=== PATIENT | male | born 1985 | race Caucasian/White ===

== ENCOUNTER 2021-08-15 13:09 | Inpatient (IN) | payer BC ==
[2021-08-15 14:39] VITALS: BMI 26.4
[2021-08-15] MEDS ORDERED: MAGNESIUM CITRATE 300 ML BOTTLE PO PRN (19:43)
[2021-08-15] MEDS ORDERED: ONDANSETRON *ODT* 4 MG TABLET SL PRN (19:43)
[2021-08-15] MEDS ORDERED: LOPERAMIDE HCL 2 MG CAPSULE PO PRN (19:43)
[2021-08-15] MEDS ORDERED: MAG HYDROX/AL HYDROX/SIMETH 30 ML UNIT-DOSE CUP PO PRN (19:43)
[2021-08-15] MEDS ORDERED: LORazepam 2 MG TABLET PO ONE (19:43)
[2021-08-15] MEDS ORDERED: MENTHOL/PHENOL 1 EACH UD MM PRN (19:43)
[2021-08-15] MEDS ORDERED: ACETAMINOPHEN 325 MG TABLET (FP) PO PRN ×2 (19:43)
[2021-08-15] MEDS ORDERED: BISMUTH SUBSALICYLATE 524 MG/30 ML PO PRN (19:43)
[2021-08-15] MEDS ORDERED: MAGNESIUM HYDROX 2400MG/30ML ORAL SUSPENSION 30 ML CUP PO PRN (19:43)
[2021-08-15] MEDS ORDERED: NICOTINE POLACRILEX 2 MG GUM BUC PRN (19:43)
[2021-08-15] MEDS ORDERED: IBUPROFEN 400 MG TABLET (FP) PO PRN (19:43)
[2021-08-15] MEDS ORDERED: methaDONE HCL 10 MG TABLET PO ONE (19:49)
[2021-08-15] MEDS ORDERED: MELATONIN 5 MG TABLETS PO PRN ×2 (22:00)
[2021-08-15] MEDS: LORazepam 2 MG TABLET PO SCH (23:05)
[2021-08-15] MEDS: THIAMINE HCL 100 MG TABLET (FP) PO SCH (23:05)
[2021-08-15] MEDS: METHOCARBAMOL 500 MG TABLET PO PRN (23:09)
[2021-08-15] MEDS: NICOTINE 10 MG CARTRIDGE (INHALER) IH PRN (23:10)
[2021-08-16] MEDS: LORazepam 2 MG TABLET PO SCH ×4 (05:46→22:09)
[2021-08-16] MEDS ORDERED: methaDONE HCL 10 MG TABLET PO ONE (10:00)
[2021-08-16] MEDS ORDERED: methaDONE HCL 40 MG DISPERSABLE TABLET ONE (10:01)
[2021-08-16] MEDS: PRENATAL VITAMINS W/ FOLIC ACID TABLET (FP) PO SCH (10:34)
[2021-08-16] MEDS: LORazepam 1 MG TABLET PO PRN (12:34)
[2021-08-16] MEDS: hydrOXYzine PAMOATE 25 MG CAPSULE (FP) PO PRN (14:21)
[2021-08-16] MEDS: GABAPENTIN 300 MG CAPSULE PO SCH ×2 (14:22→22:08)
[2021-08-16 16:42] LABS: HEMATOCRIT 37.3 % (35.4-49); HEMOGLOBIN 12.4 GM/dL (11.7-16.9); MCH 31.5 pg (25.7-33.7); MCHC 33.4 g/dl (32.0-35.9); MEAN CELL VOLUME 94.3 fl (80-96); MEAN PLT VOLUME 8.1 fl (7.5-11.1); PLATELET COUNT 321 10^3/uL (134-434); RBC 3.96 M/mm3 (4.00-5.60); RDW 13.2 % (11.9-15.9); WHITE BLOOD COUNT 10.5 K/mm3 (4.0-10.0)
[2021-08-16 16:48] LABS: BLOOD UREA NITROGEN 8.2 mg/dL (7-18); CALCIUM 9.3 mg/dL (8.5-10.1)
[2021-08-16 16:49] LABS: ALBUMIN 3.4 g/dl (3.4-5.0)
[2021-08-16 16:52] LABS: CREATININE 0.8 mg/dL (0.55-1.3)
[2021-08-16 16:53] LABS: BILIRUBIN,TOTAL 0.7 mg/dL (0.2-1); TOT PROT 6.6 g/dl (6.4-8.2)
[2021-08-16] MEDS: THIAMINE HCL 100 MG TABLET (FP) PO SCH (22:08)
[2021-08-16] MEDS: QUEtiapine FUMARATE 300 MG TABLET PO SCH (22:08)
[2021-08-17] MEDS: LORazepam 1 MG TABLET PO SCH ×4 (05:31→22:14)
[2021-08-17] MEDS: GABAPENTIN 300 MG CAPSULE PO SCH ×3 (05:32→22:14)
[2021-08-17 08:10] LABS: SARS-CoV-2 NAA Not Detected (Not Detected)
[2021-08-17] MEDS ORDERED: methaDONE HCL 40 MG DISPERSABLE TABLET ONE (09:22)
[2021-08-17] MEDS ORDERED: methaDONE HCL 10 MG TABLET PO ONE (10:00)
[2021-08-17] MEDS: PRENATAL VITAMINS W/ FOLIC ACID TABLET (FP) PO SCH (10:46)
[2021-08-17] MEDS: METHOCARBAMOL 500 MG TABLET PO PRN ×2 (10:46→16:58)
[2021-08-17] MEDS: NICOTINE 10 MG CARTRIDGE (INHALER) IH PRN (12:06)
[2021-08-17] MEDS: LORazepam 1 MG TABLET PO PRN (14:40)
[2021-08-17] MEDS: hydrOXYzine PAMOATE 25 MG CAPSULE (FP) PO PRN (16:58)
[2021-08-17] MEDS: THIAMINE HCL 100 MG TABLET (FP) PO SCH (22:14)
[2021-08-17] MEDS: QUEtiapine FUMARATE 300 MG TABLET PO SCH (22:14)
[2021-08-18] MEDS ORDERED: LORazepam 0.5 MG TABLET PO PRN
[2021-08-18] MEDS ORDERED: methaDONE HCL 40 MG DISPERSABLE TABLET ONE (04:19)
[2021-08-18] MEDS ORDERED: methaDONE HCL 10 MG TABLET PO SCH (06:00)
[2021-08-18] MEDS: GABAPENTIN 300 MG CAPSULE PO SCH ×3 (06:16→22:30)
[2021-08-18] MEDS: LORazepam 0.5 MG TABLET PO SCH ×4 (06:17→22:30)
[2021-08-18] MEDS: PRENATAL VITAMINS W/ FOLIC ACID TABLET (FP) PO SCH (10:24)
[2021-08-18] MEDS ORDERED: BACLOFEN 10 MG TABLET (FP) PO PRN (13:40)
[2021-08-18] MEDS ORDERED: BACLOFEN 10 MG TABLET (FP) PO ONE (14:00)
[2021-08-18] MEDS: hydrOXYzine PAMOATE 25 MG CAPSULE (FP) PO PRN (18:19)
[2021-08-18] MEDS: QUEtiapine FUMARATE 300 MG TABLET PO SCH (22:30)
[2021-08-18] MEDS: THIAMINE HCL 100 MG TABLET (FP) PO SCH (22:30)
[2021-08-19] MEDS ORDERED: methaDONE HCL 40 MG DISPERSABLE TABLET ONE (04:21)
[2021-08-19] MEDS ORDERED: LORazepam 0.5 MG TABLET PO ONE (05:00)
[2021-08-19] MEDS: GABAPENTIN 300 MG CAPSULE PO SCH ×2 (05:40→14:04)
[2021-08-19] MEDS: PRENATAL VITAMINS W/ FOLIC ACID TABLET (FP) PO SCH (10:45)
[2021-08-19] MEDS: hydrOXYzine PAMOATE 25 MG CAPSULE (FP) PO PRN (10:45)
[2021-08-19 13:07] VITALS: BP 130/76; PULSE 96; TEMP 98.7
== END 2021-08-19 14:08 | disposition home or self-care (01) | DRG 773 ==
LOC: YASAS 13:09 → Y6N 20:45
PROVIDERS: ADMIT Allergy & Immunology; ATTEND Allergy & Immunology
PROC: HZ2ZZZZ Detoxification Services for Substance Abuse Treatment (ICD-10-PCS; principal; 2021-08-15)
DX: F13.230 Sedative, hypnotic or anxiolytic dependence with withdrawal, uncomplicated (principal); F11.20 Opioid dependence, uncomplicated; F14.20 Cocaine dependence, uncomplicated; F12.20 Cannabis dependence, uncomplicated; F17.210 Nicotine dependence, cigarettes, uncomplicated; F25.1 Schizoaffective disorder, depressive type; F19.282 Other psychoactive substance dependence with psychoactive substance-induced sleep disorder; F19.280 Other psychoactive substance dependence with psychoactive substance-induced anxiety disorder; F19.24 Other psychoactive substance dependence with psychoactive substance-induced mood disorder; H50.89 Other specified strabismus; Z86.69 Personal history of other diseases of the nervous system and sense organs; Z88.8 Allergy status to other drugs, medicaments and biological substances; Z91.013 Allergy to seafood
CPT/HCPCS: 36415; 80053; 85027; 86780; 87811; 93005; 93010; C9803; U0003; U0005

== ENCOUNTER 2021-10-15 18:01 | Inpatient (IN) | payer BC ==
[2021-10-15 23:01] VITALS: BMI 25.7
[2021-10-16] MEDS ORDERED: MAG HYDROX/AL HYDROX/SIMETH 30 ML UNIT-DOSE CUP PO PRN (00:33)
[2021-10-16] MEDS ORDERED: NICOTINE POLACRILEX 2 MG GUM BUC PRN (00:33)
[2021-10-16] MEDS ORDERED: LOPERAMIDE HCL 2 MG CAPSULE PO PRN (00:33)
[2021-10-16] MEDS ORDERED: MAGNESIUM CITRATE 300 ML BOTTLE PO PRN (00:33)
[2021-10-16] MEDS ORDERED: BENZOCAINE/MENTHOL (CHLORASEPTIC ) LOZENGE MM PRN (00:33)
[2021-10-16] MEDS ORDERED: BISMUTH SUBSALICYLATE 524 MG/30 ML PO PRN (00:33)
[2021-10-16] MEDS ORDERED: MAGNESIUM HYDROX 2400MG/30ML ORAL SUSPENSION 30 ML CUP PO PRN (00:33)
[2021-10-16] MEDS ORDERED: DICYCLOMINE HCL 10 MG CAPSULE PO PRN (00:33)
[2021-10-16] MEDS ORDERED: ACETAMINOPHEN 325 MG TABLET (FP) PO PRN (00:33)
[2021-10-16] MEDS ORDERED: IBUPROFEN 400 MG TABLET (FP) PO PRN (00:33)
[2021-10-16] MEDS ORDERED: diazePAM 5 MG TABLET ONE (01:12)
[2021-10-16] MEDS: diazePAM 5 MG TABLET PO PRN ×3 (01:13→20:28)
[2021-10-16] MEDS: diazePAM 5 MG TABLET PO SCH ×5 (06:03→22:26)
[2021-10-16] MEDS ORDERED: methaDONE HCL 10 MG TABLET PO ONE (09:41)
[2021-10-16] MEDS ORDERED: methaDONE HCL 40 MG DISPERSABLE TABLET ONE ×2 (10:13→11:45)
[2021-10-16] MEDS: PRENATAL VITAMINS W/ FOLIC ACID TABLET (FP) PO SCH ×2 (10:14→11:51)
[2021-10-16] MEDS: NICOTINE 14 MG/24 HOURS TOPICAL PATCH TD SCH (10:14)
[2021-10-16] MEDS: ONDANSETRON *ODT* 4 MG TABLET SL PRN (10:24)
[2021-10-16] MEDS: BACITRACIN 15 GM TUBE TOPICAL OINTMENT TP SCH (11:59)
[2021-10-16] MEDS: GABAPENTIN 300 MG CAPSULE PO SCH ×2 (14:23→22:22)
[2021-10-16] MEDS: ACETAMINOPHEN 325 MG TABLET (FP) PO PRN (17:48)
[2021-10-16] MEDS: QUEtiapine FUMARATE 300 MG TABLET PO SCH (22:22)
[2021-10-16] MEDS: MELATONIN 5 MG TABLETS PO SCH (22:22)
[2021-10-16] MEDS: THIAMINE HCL 100 MG TABLET (FP) PO SCH (22:22)
[2021-10-17] MEDS ORDERED: methaDONE HCL 40 MG DISPERSABLE TABLET ONE (04:16)
[2021-10-17] MEDS ORDERED: methaDONE HCL 40 MG DISPERSABLE TABLET PO SCH (06:00)
[2021-10-17] MEDS: diazePAM 5 MG TABLET PO SCH ×3 (06:06→22:03)
[2021-10-17] MEDS: GABAPENTIN 300 MG CAPSULE PO SCH ×3 (06:06→22:03)
[2021-10-17] MEDS: PRENATAL VITAMINS W/ FOLIC ACID TABLET (FP) PO SCH (10:31)
[2021-10-17] MEDS: NICOTINE 14 MG/24 HOURS TOPICAL PATCH TD SCH (10:31)
[2021-10-17] MEDS: diazePAM 5 MG TABLET PO PRN ×2 (10:35→18:48)
[2021-10-17] MEDS ORDERED: NICOTINE 10 MG CARTRIDGE (INHALER) IH PRN (10:55)
[2021-10-17] MEDS: BACITRACIN 15 GM TUBE TOPICAL OINTMENT TP SCH (11:37)
[2021-10-17 12:41] LABS: HEMATOCRIT 35.9 % (35.4-49); HEMOGLOBIN 11.8 GM/dL (11.7-16.9); MCH 30.2 pg (25.7-33.7); MCHC 32.8 g/dl (32.0-35.9); MEAN CELL VOLUME 92.2 fl (80-96); MEAN PLT VOLUME 8.5 fl (7.5-11.1); PLATELET COUNT 304 10^3/uL (134-434); WHITE BLOOD COUNT 4.9 K/mm3 (4.0-10.0)
[2021-10-17 13:07] LABS: ALBUMIN 3.2 g/dl (3.4-5.0); BLOOD UREA NITROGEN 4.8 mg/dL (7-18)
[2021-10-17 13:10] LABS: CREATININE 0.8 mg/dL (0.55-1.3)
[2021-10-17 13:11] LABS: BILIRUBIN,TOTAL 0.4 mg/dL (0.2-1)
[2021-10-17] MEDS: THIAMINE HCL 100 MG TABLET (FP) PO SCH (22:03)
[2021-10-17] MEDS: QUEtiapine FUMARATE 300 MG TABLET PO SCH (22:03)
[2021-10-17] MEDS: MELATONIN 5 MG TABLETS PO SCH (22:06)
[2021-10-18] MEDS ORDERED: methaDONE HCL 40 MG DISPERSABLE TABLET ONE (04:21)
[2021-10-18] MEDS: GABAPENTIN 300 MG CAPSULE PO SCH ×3 (05:45→22:21)
[2021-10-18] MEDS: diazePAM 5 MG TABLET PO SCH ×2 (05:46→17:30)
[2021-10-18] MEDS: diazePAM 5 MG TABLET PO PRN ×2 (10:23→14:15)
[2021-10-18] MEDS: PRENATAL VITAMINS W/ FOLIC ACID TABLET (FP) PO SCH (10:23)
[2021-10-18] MEDS: NICOTINE 14 MG/24 HOURS TOPICAL PATCH TD SCH (10:24)
[2021-10-18] MEDS: BACITRACIN 15 GM TUBE TOPICAL OINTMENT TP SCH (10:26)
[2021-10-18] MEDS: METHOCARBAMOL 500 MG TABLET PO PRN (17:35)
[2021-10-18] MEDS: ONDANSETRON *ODT* 4 MG TABLET SL PRN (17:35)
[2021-10-18] MEDS: ACETAMINOPHEN 325 MG TABLET (FP) PO PRN (17:35)
[2021-10-18] MEDS: QUEtiapine FUMARATE 300 MG TABLET PO SCH (22:21)
[2021-10-18] MEDS: THIAMINE HCL 100 MG TABLET (FP) PO SCH (22:21)
[2021-10-18] MEDS: MELATONIN 5 MG TABLETS PO SCH (22:21)
[2021-10-19] MEDS ORDERED: methaDONE HCL 40 MG DISPERSABLE TABLET ONE (04:15)
[2021-10-19] MEDS: GABAPENTIN 300 MG CAPSULE PO SCH ×3 (05:47→22:58)
[2021-10-19] MEDS ORDERED: diazePAM 5 MG TABLET PO ONE ×2 (06:00→18:00)
[2021-10-19] MEDS: NICOTINE 14 MG/24 HOURS TOPICAL PATCH TD SCH (10:10)
[2021-10-19] MEDS: PRENATAL VITAMINS W/ FOLIC ACID TABLET (FP) PO SCH (10:10)
[2021-10-19] MEDS: BACITRACIN 15 GM TUBE TOPICAL OINTMENT TP SCH (10:11)
[2021-10-19] MEDS ORDERED: diazePAM 5 MG TABLET PO PRN (10:16)
[2021-10-19] MEDS: METHOCARBAMOL 500 MG TABLET PO PRN (18:25)
[2021-10-19] MEDS: QUEtiapine FUMARATE 300 MG TABLET PO SCH (22:58)
[2021-10-19] MEDS: MELATONIN 5 MG TABLETS PO SCH (22:58)
[2021-10-19] MEDS: THIAMINE HCL 100 MG TABLET (FP) PO SCH (22:58)
[2021-10-20] MEDS ORDERED: methaDONE HCL 40 MG DISPERSABLE TABLET ONE (04:49)
[2021-10-20] MEDS ORDERED: diazePAM 5 MG TABLET PO ONE (05:00)
[2021-10-20] MEDS: GABAPENTIN 300 MG CAPSULE PO SCH ×2 (06:00→14:53)
[2021-10-20] MEDS: METHOCARBAMOL 500 MG TABLET PO PRN (10:27)
[2021-10-20] MEDS: PRENATAL VITAMINS W/ FOLIC ACID TABLET (FP) PO SCH (10:27)
[2021-10-20] MEDS: BACITRACIN 15 GM TUBE TOPICAL OINTMENT TP SCH (10:27)
[2021-10-20] MEDS: NICOTINE 14 MG/24 HOURS TOPICAL PATCH TD SCH (10:29)
[2021-10-20 13:06] VITALS: BP 102/58; PULSE 81; TEMP 97.1
[2021-10-20 14:08] LABS: SARS-CoV-2 NAA Not Detected (Not Detected)
== END 2021-10-20 15:04 | disposition other institution (70) | DRG 773 ==
LOC: YASAS 18:01 → Y6N 10-16 02:19
PROVIDERS: ADMIT Allergy & Immunology; ATTEND Allergy & Immunology
PROC: HZ2ZZZZ Detoxification Services for Substance Abuse Treatment (ICD-10-PCS; principal; 2021-10-16)
DX: F13.230 Sedative, hypnotic or anxiolytic dependence with withdrawal, uncomplicated (principal); F11.20 Opioid dependence, uncomplicated; F14.20 Cocaine dependence, uncomplicated; F17.210 Nicotine dependence, cigarettes, uncomplicated; F25.1 Schizoaffective disorder, depressive type; F33.9 Major depressive disorder, recurrent, unspecified; F19.282 Other psychoactive substance dependence with psychoactive substance-induced sleep disorder; F19.280 Other psychoactive substance dependence with psychoactive substance-induced anxiety disorder; F41.9 Anxiety disorder, unspecified; F43.10 Post-traumatic stress disorder, unspecified; R73.09 Other abnormal glucose; Z28.310 Unvaccinated for COVID-19; Z86.69 Personal history of other diseases of the nervous system and sense organs; Z91.51 Personal history of suicidal behavior; Z56.0 Unemployment, unspecified
CPT/HCPCS: 36415; 80053; 82962; 85027; 86780; 93005; 93010; C9803-CS; Q0162; U0003; U0005

== ENCOUNTER 2021-10-20 15:07 | Inpatient (IN) | payer BC ==
[2021-10-20] MEDS ORDERED: guaiFENesin 200 MG/10 ML 10 ML UNIT-DOSE CUPS PO PRN (16:17)
[2021-10-20] MEDS ORDERED: P-EPHED 60MG/TRIPROLIDI 2.5MG TABLET PO PRN (16:17)
[2021-10-20] MEDS ORDERED: LOPERAMIDE HCL 2 MG CAPSULE PO PRN (16:17)
[2021-10-20] MEDS ORDERED: MAGNESIUM HYDROX 2400MG/30ML ORAL SUSPENSION 30 ML CUP PO PRN (16:17)
[2021-10-20] MEDS ORDERED: NICOTINE POLACRILEX 2 MG GUM BUC PRN (16:17)
[2021-10-20] MEDS ORDERED: MAG HYDROX/AL HYDROX/SIMETH 30 ML UNIT-DOSE CUP PO PRN (16:17)
[2021-10-20] MEDS ORDERED: MAGNESIUM CITRATE 300 ML BOTTLE PO PRN (16:17)
[2021-10-20] MEDS ORDERED: BENZOCAINE/MENTHOL (CHLORASEPTIC ) LOZENGE MM PRN (16:17)
[2021-10-20] MEDS: MELATONIN 5 MG TABLETS PO SCH (21:34)
[2021-10-20] MEDS: hydrOXYzine PAMOATE 25 MG CAPSULE (FP) PO PRN (21:34)
[2021-10-20] MEDS: GABAPENTIN 300 MG CAPSULE PO SCH (21:35)
[2021-10-20] MEDS: THIAMINE HCL 100 MG TABLET (FP) PO SCH (21:35)
[2021-10-20] MEDS: QUEtiapine FUMARATE 300 MG TABLET PO SCH (21:35)
[2021-10-21] MEDS: GABAPENTIN 300 MG CAPSULE PO SCH ×3 (06:28→21:41)
[2021-10-21] MEDS ORDERED: methaDONE HCL 10 MG TABLET PO ONE (09:16)
[2021-10-21] MEDS ORDERED: methaDONE HCL 40 MG DISPERSABLE TABLET ONE (10:15)
[2021-10-21] MEDS: NICOTINE 7 MG/24 HOURS TOPICAL PATCH TD SCH (10:33)
[2021-10-21] MEDS: PRENATAL VITAMINS W/ FOLIC ACID TABLET (FP) PO SCH (10:33)
[2021-10-21] MEDS: NICOTINE 10 MG CARTRIDGE (INHALER) IH PRN (10:36)
[2021-10-21] MEDS: THIAMINE HCL 100 MG TABLET (FP) PO SCH (21:41)
[2021-10-21] MEDS: QUEtiapine FUMARATE 300 MG TABLET PO SCH (21:41)
[2021-10-21] MEDS: MELATONIN 5 MG TABLETS PO SCH (21:41)
[2021-10-22] MEDS ORDERED: methaDONE HCL 10 MG TABLET PO SCH (06:00)
[2021-10-22] MEDS ORDERED: methaDONE HCL 40 MG DISPERSABLE TABLET ONE (06:16)
[2021-10-22] MEDS: GABAPENTIN 300 MG CAPSULE PO SCH ×3 (06:17→21:32)
[2021-10-22] MEDS: PRENATAL VITAMINS W/ FOLIC ACID TABLET (FP) PO SCH (10:29)
[2021-10-22] MEDS: NICOTINE 7 MG/24 HOURS TOPICAL PATCH TD SCH (10:30)
[2021-10-22] MEDS: QUEtiapine FUMARATE 300 MG TABLET PO SCH (21:32)
[2021-10-22] MEDS: THIAMINE HCL 100 MG TABLET (FP) PO SCH (21:33)
[2021-10-22] MEDS: MELATONIN 5 MG TABLETS PO SCH (21:33)
[2021-10-23] MEDS ORDERED: methaDONE HCL 40 MG DISPERSABLE TABLET ONE (04:22)
[2021-10-23] MEDS: GABAPENTIN 300 MG CAPSULE PO SCH ×3 (06:25→21:36)
[2021-10-23] MEDS: NICOTINE 10 MG CARTRIDGE (INHALER) IH PRN (06:27)
[2021-10-23] MEDS: NICOTINE 7 MG/24 HOURS TOPICAL PATCH TD SCH (10:00)
[2021-10-23] MEDS: PRENATAL VITAMINS W/ FOLIC ACID TABLET (FP) PO SCH (10:01)
[2021-10-23 12:33] LABS: BLOOD UREA NITROGEN 8.8 mg/dL (7-18)
[2021-10-23 12:35] LABS: ALBUMIN 3.6 g/dl (3.4-5.0)
[2021-10-23 12:37] LABS: BILIRUBIN,TOTAL 0.4 mg/dL (0.2-1); TOT PROT 6.9 g/dl (6.4-8.2)
[2021-10-23 12:41] LABS: INR 1.01 (0.83-1.09); PROTHROMBIN TIME (PATIENT) 11.6 SEC (9.7-13.0)
[2021-10-23] MEDS: QUEtiapine FUMARATE 300 MG TABLET PO SCH (21:36)
[2021-10-23] MEDS: THIAMINE HCL 100 MG TABLET (FP) PO SCH (21:36)
[2021-10-23] MEDS: MELATONIN 5 MG TABLETS PO SCH (21:37)
[2021-10-24] MEDS ORDERED: methaDONE HCL 40 MG DISPERSABLE TABLET ONE (03:28)
[2021-10-24] MEDS: GABAPENTIN 300 MG CAPSULE PO SCH ×3 (06:15→21:32)
[2021-10-24] MEDS: NICOTINE 7 MG/24 HOURS TOPICAL PATCH TD SCH (09:59)
[2021-10-24] MEDS: PRENATAL VITAMINS W/ FOLIC ACID TABLET (FP) PO SCH (09:59)
[2021-10-24] MEDS: hydrOXYzine PAMOATE 25 MG CAPSULE (FP) PO PRN (11:13)
[2021-10-24] MEDS: ONDANSETRON *ODT* 4 MG TABLET SL PRN (13:02)
[2021-10-24] MEDS: MELATONIN 5 MG TABLETS PO SCH (21:32)
[2021-10-24] MEDS: QUEtiapine FUMARATE 300 MG TABLET PO SCH (21:32)
[2021-10-24] MEDS: THIAMINE HCL 100 MG TABLET (FP) PO SCH (21:32)
[2021-10-25 00:06] LABS: SARS-CoV-2 NAA Not Detected (Not Detected)
[2021-10-25] MEDS ORDERED: methaDONE HCL 40 MG DISPERSABLE TABLET ONE (03:26)
[2021-10-25] MEDS: GABAPENTIN 300 MG CAPSULE PO SCH ×3 (06:09→21:49)
[2021-10-25] MEDS: PRENATAL VITAMINS W/ FOLIC ACID TABLET (FP) PO SCH (10:26)
[2021-10-25] MEDS: NICOTINE 7 MG/24 HOURS TOPICAL PATCH TD SCH (10:26)
[2021-10-25] MEDS: NICOTINE 10 MG CARTRIDGE (INHALER) IH PRN (10:28)
[2021-10-25] MEDS: ONDANSETRON *ODT* 4 MG TABLET SL PRN (10:28)
[2021-10-25] MEDS: QUEtiapine FUMARATE 300 MG TABLET PO SCH (21:49)
[2021-10-25] MEDS: THIAMINE HCL 100 MG TABLET (FP) PO SCH (21:49)
[2021-10-25] MEDS: MELATONIN 5 MG TABLETS PO SCH (21:49)
[2021-10-26] MEDS ORDERED: methaDONE HCL 40 MG DISPERSABLE TABLET ONE (03:57)
[2021-10-26] MEDS: GABAPENTIN 300 MG CAPSULE PO SCH ×3 (06:46→21:29)
[2021-10-26] MEDS: NICOTINE 7 MG/24 HOURS TOPICAL PATCH TD SCH (10:02)
[2021-10-26] MEDS: PRENATAL VITAMINS W/ FOLIC ACID TABLET (FP) PO SCH (10:02)
[2021-10-26] MEDS: NICOTINE 10 MG CARTRIDGE (INHALER) IH PRN (10:02)
[2021-10-26] MEDS: ACETAMINOPHEN 325 MG TABLET (FP) PO PRN (13:55)
[2021-10-26] MEDS: ONDANSETRON *ODT* 4 MG TABLET SL PRN (13:57)
[2021-10-26] MEDS: THIAMINE HCL 100 MG TABLET (FP) PO SCH (21:28)
[2021-10-26] MEDS: MELATONIN 5 MG TABLETS PO SCH (21:28)
[2021-10-26] MEDS: QUEtiapine FUMARATE 300 MG TABLET PO SCH (21:28)
[2021-10-27] MEDS ORDERED: methaDONE HCL 40 MG DISPERSABLE TABLET ONE (04:01)
[2021-10-27] MEDS: GABAPENTIN 300 MG CAPSULE PO SCH ×3 (06:22→21:37)
[2021-10-27] MEDS: NICOTINE 10 MG CARTRIDGE (INHALER) IH PRN (10:07)
[2021-10-27] MEDS: NICOTINE 7 MG/24 HOURS TOPICAL PATCH TD SCH (10:07)
[2021-10-27] MEDS: PRENATAL VITAMINS W/ FOLIC ACID TABLET (FP) PO SCH (10:08)
[2021-10-27] MEDS: MELATONIN 5 MG TABLETS PO SCH (21:37)
[2021-10-27] MEDS: THIAMINE HCL 100 MG TABLET (FP) PO SCH (21:37)
[2021-10-27] MEDS: QUEtiapine FUMARATE 300 MG TABLET PO SCH (21:38)
[2021-10-28] MEDS ORDERED: methaDONE HCL 40 MG DISPERSABLE TABLET ONE (04:16)
[2021-10-28] MEDS: GABAPENTIN 300 MG CAPSULE PO SCH ×3 (06:18→21:29)
[2021-10-28] MEDS: PRENATAL VITAMINS W/ FOLIC ACID TABLET (FP) PO SCH (10:18)
[2021-10-28] MEDS: NICOTINE 7 MG/24 HOURS TOPICAL PATCH TD SCH (10:18)
[2021-10-28] MEDS: NICOTINE 10 MG CARTRIDGE (INHALER) IH PRN (10:20)
[2021-10-28] MEDS: QUEtiapine FUMARATE 300 MG TABLET PO SCH (21:29)
[2021-10-28] MEDS: MELATONIN 5 MG TABLETS PO SCH (21:30)
[2021-10-28] MEDS: THIAMINE HCL 100 MG TABLET (FP) PO SCH (21:30)
[2021-10-29] MEDS ORDERED: methaDONE HCL 40 MG DISPERSABLE TABLET ONE (05:07)
[2021-10-29] MEDS: GABAPENTIN 300 MG CAPSULE PO SCH ×3 (06:28→21:28)
[2021-10-29] MEDS: NICOTINE 7 MG/24 HOURS TOPICAL PATCH TD SCH (10:13)
[2021-10-29] MEDS: PRENATAL VITAMINS W/ FOLIC ACID TABLET (FP) PO SCH (10:13)
[2021-10-29] MEDS: ACETAMINOPHEN 325 MG TABLET (FP) PO PRN (10:14)
[2021-10-29] MEDS: MELATONIN 5 MG TABLETS PO SCH (21:27)
[2021-10-29] MEDS: QUEtiapine FUMARATE 300 MG TABLET PO SCH (21:28)
[2021-10-29] MEDS: THIAMINE HCL 100 MG TABLET (FP) PO SCH (21:28)
[2021-10-30] MEDS ORDERED: methaDONE HCL 40 MG DISPERSABLE TABLET ONE (06:14)
[2021-10-30] MEDS: GABAPENTIN 300 MG CAPSULE PO SCH ×3 (06:16→22:06)
[2021-10-30] MEDS: NICOTINE 7 MG/24 HOURS TOPICAL PATCH TD SCH (10:23)
[2021-10-30] MEDS: hydrOXYzine PAMOATE 25 MG CAPSULE (FP) PO PRN (10:23)
[2021-10-30] MEDS: PRENATAL VITAMINS W/ FOLIC ACID TABLET (FP) PO SCH (10:23)
[2021-10-30] MEDS: NICOTINE 10 MG CARTRIDGE (INHALER) IH PRN (10:24)
[2021-10-30] MEDS: MELATONIN 5 MG TABLETS PO SCH (22:06)
[2021-10-30] MEDS: THIAMINE HCL 100 MG TABLET (FP) PO SCH (22:07)
[2021-10-30] MEDS: QUEtiapine FUMARATE 300 MG TABLET PO SCH (22:07)
[2021-10-31] MEDS ORDERED: methaDONE HCL 40 MG DISPERSABLE TABLET ONE (05:04)
[2021-10-31] MEDS: GABAPENTIN 300 MG CAPSULE PO SCH ×3 (06:35→22:21)
[2021-10-31] MEDS: NICOTINE 10 MG CARTRIDGE (INHALER) IH PRN ×2 (10:23→22:25)
[2021-10-31] MEDS: PRENATAL VITAMINS W/ FOLIC ACID TABLET (FP) PO SCH (10:24)
[2021-10-31] MEDS: NICOTINE 7 MG/24 HOURS TOPICAL PATCH TD SCH (10:24)
[2021-10-31] MEDS: hydrOXYzine PAMOATE 25 MG CAPSULE (FP) PO PRN (10:25)
[2021-10-31] MEDS: MELATONIN 5 MG TABLETS PO SCH (22:21)
[2021-10-31] MEDS: THIAMINE HCL 100 MG TABLET (FP) PO SCH (22:22)
[2021-10-31] MEDS: QUEtiapine FUMARATE 300 MG TABLET PO SCH (22:22)
[2021-11-01] MEDS ORDERED: methaDONE HCL 40 MG DISPERSABLE TABLET ONE (03:01)
[2021-11-01] MEDS: GABAPENTIN 300 MG CAPSULE PO SCH ×3 (06:13→21:42)
[2021-11-01] MEDS: PRENATAL VITAMINS W/ FOLIC ACID TABLET (FP) PO SCH (10:27)
[2021-11-01] MEDS: NICOTINE 7 MG/24 HOURS TOPICAL PATCH TD SCH (10:27)
[2021-11-01] MEDS: QUEtiapine FUMARATE 300 MG TABLET PO SCH (21:41)
[2021-11-01] MEDS: MELATONIN 5 MG TABLETS PO SCH (21:42)
[2021-11-01] MEDS: THIAMINE HCL 100 MG TABLET (FP) PO SCH (21:42)
[2021-11-02] MEDS ORDERED: methaDONE HCL 40 MG DISPERSABLE TABLET ONE (03:02)
[2021-11-02] MEDS: GABAPENTIN 300 MG CAPSULE PO SCH ×3 (06:07→22:07)
[2021-11-02] MEDS: NICOTINE 10 MG CARTRIDGE (INHALER) IH PRN ×3 (06:09→22:08)
[2021-11-02] MEDS: PRENATAL VITAMINS W/ FOLIC ACID TABLET (FP) PO SCH (10:16)
[2021-11-02] MEDS: NICOTINE 7 MG/24 HOURS TOPICAL PATCH TD SCH (10:18)
[2021-11-02] MEDS: hydrOXYzine PAMOATE 25 MG CAPSULE (FP) PO PRN (10:18)
[2021-11-02] MEDS: MELATONIN 5 MG TABLETS PO SCH (22:06)
[2021-11-02] MEDS: QUEtiapine FUMARATE 300 MG TABLET PO SCH (22:07)
[2021-11-02] MEDS: THIAMINE HCL 100 MG TABLET (FP) PO SCH (22:07)
[2021-11-03] MEDS ORDERED: methaDONE HCL 40 MG DISPERSABLE TABLET ONE (03:47)
[2021-11-03] MEDS: GABAPENTIN 300 MG CAPSULE PO SCH ×3 (06:23→21:04)
[2021-11-03] MEDS: PRENATAL VITAMINS W/ FOLIC ACID TABLET (FP) PO SCH (10:05)
[2021-11-03] MEDS: NICOTINE 7 MG/24 HOURS TOPICAL PATCH TD SCH (10:05)
[2021-11-03] MEDS: hydrOXYzine PAMOATE 25 MG CAPSULE (FP) PO PRN (10:06)
[2021-11-03] MEDS: MELATONIN 5 MG TABLETS PO SCH (21:04)
[2021-11-03] MEDS: QUEtiapine FUMARATE 300 MG TABLET PO SCH (21:04)
[2021-11-03] MEDS: THIAMINE HCL 100 MG TABLET (FP) PO SCH (21:04)
[2021-11-03] MEDS: NICOTINE 10 MG CARTRIDGE (INHALER) IH PRN (21:05)
[2021-11-04] MEDS ORDERED: methaDONE HCL 40 MG DISPERSABLE TABLET ONE (04:06)
[2021-11-04] MEDS: GABAPENTIN 300 MG CAPSULE PO SCH ×3 (06:20→21:42)
[2021-11-04] MEDS: PRENATAL VITAMINS W/ FOLIC ACID TABLET (FP) PO SCH (10:33)
[2021-11-04] MEDS: NICOTINE 7 MG/24 HOURS TOPICAL PATCH TD SCH (10:34)
[2021-11-04] MEDS: QUEtiapine FUMARATE 300 MG TABLET PO SCH (21:42)
[2021-11-04] MEDS: THIAMINE HCL 100 MG TABLET (FP) PO SCH (21:42)
[2021-11-04] MEDS: MELATONIN 5 MG TABLETS PO SCH (21:42)
[2021-11-05] MEDS ORDERED: methaDONE HCL 40 MG DISPERSABLE TABLET ONE (04:05)
[2021-11-05] MEDS: GABAPENTIN 300 MG CAPSULE PO SCH ×3 (06:26→22:03)
[2021-11-05] MEDS: NICOTINE 10 MG CARTRIDGE (INHALER) IH PRN ×2 (06:33→22:02)
[2021-11-05] MEDS: ACETAMINOPHEN 325 MG TABLET (FP) PO PRN ×2 (10:09→22:04)
[2021-11-05] MEDS: NICOTINE 7 MG/24 HOURS TOPICAL PATCH TD SCH (10:09)
[2021-11-05] MEDS: PRENATAL VITAMINS W/ FOLIC ACID TABLET (FP) PO SCH (10:09)
[2021-11-05] MEDS: THIAMINE HCL 100 MG TABLET (FP) PO SCH (22:02)
[2021-11-05] MEDS: QUEtiapine FUMARATE 300 MG TABLET PO SCH (22:03)
[2021-11-05] MEDS: MELATONIN 5 MG TABLETS PO SCH (22:03)
[2021-11-06] MEDS ORDERED: methaDONE HCL 40 MG DISPERSABLE TABLET ONE (03:45)
[2021-11-06] MEDS: GABAPENTIN 300 MG CAPSULE PO SCH ×3 (06:29→21:34)
[2021-11-06] MEDS: ACETAMINOPHEN 325 MG TABLET (FP) PO PRN (09:52)
[2021-11-06] MEDS: PRENATAL VITAMINS W/ FOLIC ACID TABLET (FP) PO SCH (09:52)
[2021-11-06] MEDS: NICOTINE 7 MG/24 HOURS TOPICAL PATCH TD SCH (09:52)
[2021-11-06] MEDS: NICOTINE 10 MG CARTRIDGE (INHALER) IH PRN (09:54)
[2021-11-06] MEDS: IBUPROFEN 400 MG TABLET (FP) PO PRN (14:20)
[2021-11-06] MEDS: QUEtiapine FUMARATE 300 MG TABLET PO SCH (21:34)
[2021-11-06] MEDS: MELATONIN 5 MG TABLETS PO SCH (21:35)
[2021-11-06] MEDS: THIAMINE HCL 100 MG TABLET (FP) PO SCH (21:35)
[2021-11-07] MEDS ORDERED: methaDONE HCL 40 MG DISPERSABLE TABLET ONE (03:20)
[2021-11-07] MEDS: GABAPENTIN 300 MG CAPSULE PO SCH ×3 (06:34→21:35)
[2021-11-07] MEDS: NICOTINE 7 MG/24 HOURS TOPICAL PATCH TD SCH (10:11)
[2021-11-07] MEDS: PRENATAL VITAMINS W/ FOLIC ACID TABLET (FP) PO SCH (10:11)
[2021-11-07] MEDS: hydrOXYzine PAMOATE 25 MG CAPSULE (FP) PO PRN (10:12)
[2021-11-07] MEDS: MELATONIN 5 MG TABLETS PO SCH (21:35)
[2021-11-07] MEDS: QUEtiapine FUMARATE 300 MG TABLET PO SCH (21:35)
[2021-11-07] MEDS: THIAMINE HCL 100 MG TABLET (FP) PO SCH (21:35)
[2021-11-07] MEDS: NICOTINE 10 MG CARTRIDGE (INHALER) IH PRN (21:36)
[2021-11-08] MEDS ORDERED: methaDONE HCL 40 MG DISPERSABLE TABLET ONE (05:37)
[2021-11-08] MEDS: GABAPENTIN 300 MG CAPSULE PO SCH ×3 (06:42→21:53)
[2021-11-08] MEDS: ACETAMINOPHEN 325 MG TABLET (FP) PO PRN (10:47)
[2021-11-08] MEDS: PRENATAL VITAMINS W/ FOLIC ACID TABLET (FP) PO SCH (10:47)
[2021-11-08] MEDS: NICOTINE 7 MG/24 HOURS TOPICAL PATCH TD SCH (10:48)
[2021-11-08] MEDS: NICOTINE 10 MG CARTRIDGE (INHALER) IH PRN ×2 (10:48→21:55)
[2021-11-08] MEDS: QUEtiapine FUMARATE 300 MG TABLET PO SCH (21:53)
[2021-11-08] MEDS: THIAMINE HCL 100 MG TABLET (FP) PO SCH (21:54)
[2021-11-08] MEDS: MELATONIN 5 MG TABLETS PO SCH (21:54)
[2021-11-09] MEDS ORDERED: methaDONE HCL 40 MG DISPERSABLE TABLET ONE ×2 (04:56→06:22)
[2021-11-09] MEDS: GABAPENTIN 300 MG CAPSULE PO SCH ×3 (06:19→21:52)
[2021-11-09] MEDS: PRENATAL VITAMINS W/ FOLIC ACID TABLET (FP) PO SCH (10:33)
[2021-11-09] MEDS: hydrOXYzine PAMOATE 25 MG CAPSULE (FP) PO PRN (10:33)
[2021-11-09] MEDS: NICOTINE 7 MG/24 HOURS TOPICAL PATCH TD SCH (10:34)
[2021-11-09] MEDS: NICOTINE 10 MG CARTRIDGE (INHALER) IH PRN ×2 (10:35→21:54)
[2021-11-09] MEDS: ACETAMINOPHEN 325 MG TABLET (FP) PO PRN (13:24)
[2021-11-09] MEDS: THIAMINE HCL 100 MG TABLET (FP) PO SCH (21:52)
[2021-11-09] MEDS: QUEtiapine FUMARATE 300 MG TABLET PO SCH (21:52)
[2021-11-09] MEDS: MELATONIN 5 MG TABLETS PO SCH (21:53)
[2021-11-10] MEDS ORDERED: methaDONE HCL 40 MG DISPERSABLE TABLET ONE (04:12)
[2021-11-10] MEDS: GABAPENTIN 300 MG CAPSULE PO SCH ×3 (06:46→21:43)
[2021-11-10] MEDS: NICOTINE 7 MG/24 HOURS TOPICAL PATCH TD SCH (10:20)
[2021-11-10] MEDS: NICOTINE 10 MG CARTRIDGE (INHALER) IH PRN (10:20)
[2021-11-10] MEDS: PRENATAL VITAMINS W/ FOLIC ACID TABLET (FP) PO SCH (10:21)
[2021-11-10] MEDS: ACETAMINOPHEN 325 MG TABLET (FP) PO PRN (10:21)
[2021-11-10] MEDS: THIAMINE HCL 100 MG TABLET (FP) PO SCH (21:43)
[2021-11-10] MEDS: QUEtiapine FUMARATE 300 MG TABLET PO SCH (21:43)
[2021-11-10] MEDS: MELATONIN 5 MG TABLETS PO SCH (21:43)
[2021-11-11] MEDS ORDERED: methaDONE HCL 40 MG DISPERSABLE TABLET ONE (03:14)
[2021-11-11] MEDS: GABAPENTIN 300 MG CAPSULE PO SCH ×3 (06:35→21:38)
[2021-11-11] MEDS: NICOTINE 10 MG CARTRIDGE (INHALER) IH PRN ×3 (06:37→21:39)
[2021-11-11] MEDS: PRENATAL VITAMINS W/ FOLIC ACID TABLET (FP) PO SCH (10:19)
[2021-11-11] MEDS: NICOTINE 7 MG/24 HOURS TOPICAL PATCH TD SCH (10:21)
[2021-11-11] MEDS: hydrOXYzine PAMOATE 25 MG CAPSULE (FP) PO PRN (10:21)
[2021-11-11] MEDS: QUEtiapine FUMARATE 300 MG TABLET PO SCH (21:38)
[2021-11-11] MEDS: THIAMINE HCL 100 MG TABLET (FP) PO SCH (21:38)
[2021-11-11] MEDS: MELATONIN 5 MG TABLETS PO SCH (21:39)
[2021-11-12] MEDS: NICOTINE 10 MG CARTRIDGE (INHALER) IH PRN ×3 (06:23→21:35)
[2021-11-12] MEDS ORDERED: methaDONE HCL 40 MG DISPERSABLE TABLET ONE (06:24)
[2021-11-12] MEDS: GABAPENTIN 300 MG CAPSULE PO SCH ×3 (06:25→21:33)
[2021-11-12] MEDS: NICOTINE 7 MG/24 HOURS TOPICAL PATCH TD SCH (10:13)
[2021-11-12] MEDS: PRENATAL VITAMINS W/ FOLIC ACID TABLET (FP) PO SCH (10:13)
[2021-11-12] MEDS: THIAMINE HCL 100 MG TABLET (FP) PO SCH (21:33)
[2021-11-12] MEDS: QUEtiapine FUMARATE 300 MG TABLET PO SCH (21:33)
[2021-11-12] MEDS: MELATONIN 5 MG TABLETS PO SCH (21:33)
[2021-11-13] MEDS ORDERED: methaDONE HCL 40 MG DISPERSABLE TABLET ONE (03:54)
[2021-11-13] MEDS: NICOTINE 10 MG CARTRIDGE (INHALER) IH PRN ×2 (06:52→10:24)
[2021-11-13] MEDS: GABAPENTIN 300 MG CAPSULE PO SCH ×3 (06:53→21:38)
[2021-11-13] MEDS: PRENATAL VITAMINS W/ FOLIC ACID TABLET (FP) PO SCH (10:23)
[2021-11-13] MEDS: hydrOXYzine PAMOATE 25 MG CAPSULE (FP) PO PRN (10:24)
[2021-11-13] MEDS: NICOTINE 7 MG/24 HOURS TOPICAL PATCH TD SCH (10:25)
[2021-11-13] MEDS: MELATONIN 5 MG TABLETS PO SCH (21:37)
[2021-11-13] MEDS: QUEtiapine FUMARATE 300 MG TABLET PO SCH (21:38)
[2021-11-13] MEDS: THIAMINE HCL 100 MG TABLET (FP) PO SCH (21:38)
[2021-11-14] MEDS ORDERED: methaDONE HCL 40 MG DISPERSABLE TABLET ONE (03:41)
[2021-11-14] MEDS: NICOTINE 10 MG CARTRIDGE (INHALER) IH PRN ×3 (06:46→21:39)
[2021-11-14] MEDS: GABAPENTIN 300 MG CAPSULE PO SCH ×3 (06:47→21:38)
[2021-11-14] MEDS: hydrOXYzine PAMOATE 25 MG CAPSULE (FP) PO PRN ×2 (10:10→21:39)
[2021-11-14] MEDS: NICOTINE 7 MG/24 HOURS TOPICAL PATCH TD SCH (10:10)
[2021-11-14] MEDS: PRENATAL VITAMINS W/ FOLIC ACID TABLET (FP) PO SCH (10:10)
[2021-11-14] MEDS: MELATONIN 5 MG TABLETS PO SCH (21:38)
[2021-11-14] MEDS: THIAMINE HCL 100 MG TABLET (FP) PO SCH (21:39)
[2021-11-14] MEDS: QUEtiapine FUMARATE 300 MG TABLET PO SCH (21:39)
[2021-11-15] MEDS ORDERED: methaDONE HCL 40 MG DISPERSABLE TABLET ONE (03:13)
[2021-11-15] MEDS: GABAPENTIN 300 MG CAPSULE PO SCH ×3 (06:21→21:30)
[2021-11-15] MEDS: PRENATAL VITAMINS W/ FOLIC ACID TABLET (FP) PO SCH (10:18)
[2021-11-15] MEDS: NICOTINE 7 MG/24 HOURS TOPICAL PATCH TD SCH (10:18)
[2021-11-15] MEDS: IBUPROFEN 400 MG TABLET (FP) PO PRN (10:19)
[2021-11-15] MEDS: NICOTINE 10 MG CARTRIDGE (INHALER) IH PRN ×2 (10:26→21:30)
[2021-11-15] MEDS: MELATONIN 5 MG TABLETS PO SCH (21:29)
[2021-11-15] MEDS: THIAMINE HCL 100 MG TABLET (FP) PO SCH (21:30)
[2021-11-15] MEDS: QUEtiapine FUMARATE 300 MG TABLET PO SCH (21:30)
[2021-11-16] MEDS ORDERED: methaDONE HCL 40 MG DISPERSABLE TABLET ONE (05:43)
[2021-11-16] MEDS: GABAPENTIN 300 MG CAPSULE PO SCH (06:18)
[2021-11-16 08:09] VITALS: BP 127/94; PULSE 96; TEMP 97.8
[2021-11-16] MEDS: NICOTINE 7 MG/24 HOURS TOPICAL PATCH TD SCH (10:43)
[2021-11-16] MEDS: NICOTINE 10 MG CARTRIDGE (INHALER) IH PRN (10:43)
[2021-11-16] MEDS: PRENATAL VITAMINS W/ FOLIC ACID TABLET (FP) PO SCH (10:43)
== END 2021-11-16 13:00 | disposition home or self-care (01) | DRG 772 ==
LOC: YASAS 15:07 → Y5N 15:12
PROVIDERS: ADMIT Allergy & Immunology; ATTEND Allergy & Immunology
PROC: HZ42ZZZ Group Counseling for Substance Abuse Treatment, Cognitive-Behavioral (ICD-10-PCS; principal; 2021-10-20)
DX: F13.20 Sedative, hypnotic or anxiolytic dependence, uncomplicated (principal); F11.20 Opioid dependence, uncomplicated; F14.20 Cocaine dependence, uncomplicated; F15.20 Other stimulant dependence, uncomplicated; F12.20 Cannabis dependence, uncomplicated; F17.210 Nicotine dependence, cigarettes, uncomplicated; F41.9 Anxiety disorder, unspecified; F32.A Depression, unspecified; F43.10 Post-traumatic stress disorder, unspecified; H50.89 Other specified strabismus; Z86.69 Personal history of other diseases of the nervous system and sense organs
CPT/HCPCS: 36415; 80053; 85610; C9803-CS; Q0162; U0003; U0005

== ENCOUNTER 2022-02-07 18:25 | Inpatient (IN) | payer BC ==
[2022-02-07 19:43] VITALS: BMI 25.7
[2022-02-07] MEDS ORDERED: IBUPROFEN 600 MG TABLET (FP) PO PRN (20:53)
[2022-02-07] MEDS ORDERED: NICOTINE POLACRILEX 2 MG GUM BUC PRN (20:53)
[2022-02-07] MEDS ORDERED: MAGNESIUM HYDROX 2400MG/30ML ORAL SUSPENSION 30 ML CUP PO PRN (20:53)
[2022-02-07] MEDS ORDERED: DICYCLOMINE HCL 10 MG CAPSULE PO PRN (20:53)
[2022-02-07] MEDS ORDERED: ONDANSETRON *ODT* 4 MG TABLET SL PRN (20:53)
[2022-02-07] MEDS ORDERED: BENZOCAINE/MENTHOL (CHLORASEPTIC ) LOZENGE MM PRN (20:53)
[2022-02-07] MEDS ORDERED: IBUPROFEN 400 MG TABLET (FP) PO PRN (20:53)
[2022-02-07] MEDS ORDERED: diazePAM 5 MG TABLET PO PRN (20:53)
[2022-02-07] MEDS ORDERED: BISMUTH SUBSALICYLATE 524 MG/30 ML PO PRN (20:53)
[2022-02-07] MEDS ORDERED: LOPERAMIDE HCL 2 MG CAPSULE PO PRN (20:53)
[2022-02-07] MEDS ORDERED: MAG HYDROX/AL HYDROX/SIMETH 30 ML UNIT-DOSE CUP PO PRN (20:53)
[2022-02-07] MEDS ORDERED: MAGNESIUM CITRATE 300 ML BOTTLE PO PRN (20:53)
[2022-02-07] MEDS ORDERED: ACETAMINOPHEN 325 MG TABLET (FP) PO PRN ×2 (20:53)
[2022-02-07] MEDS ORDERED: GABAPENTIN 300 MG CAPSULE PO ONE (21:53)
[2022-02-07] MEDS: MELATONIN 5 MG TABLETS PO SCH (22:50)
[2022-02-07] MEDS: THIAMINE HCL 100 MG TABLET (FP) PO SCH (22:52)
[2022-02-07] MEDS: diazePAM 5 MG TABLET PO SCH (22:52)
[2022-02-07] MEDS: METHOCARBAMOL 500 MG TABLET PO PRN (22:53)
[2022-02-07] MEDS: NICOTINE 10 MG CARTRIDGE (INHALER) IH PRN (22:56)
[2022-02-08] MEDS: diazePAM 5 MG TABLET PO SCH ×2 (05:31→10:20)
[2022-02-08] MEDS ORDERED: methaDONE HCL 10 MG TABLET PO ONE (08:34)
[2022-02-08] MEDS: NICOTINE 10 MG CARTRIDGE (INHALER) IH PRN ×3 (10:21→22:30)
[2022-02-08] MEDS: PRENATAL VITAMINS W/ FOLIC ACID TABLET (FP) PO SCH (10:21)
[2022-02-08] MEDS: METHOCARBAMOL 500 MG TABLET PO PRN (10:21)
[2022-02-08] MEDS: NICOTINE 14 MG/24 HOURS TOPICAL PATCH TD SCH (10:22)
[2022-02-08 12:33] LABS: HEMATOCRIT 40.5 % (35.4-49); HEMOGLOBIN 13.6 GM/dL (11.7-16.9); MCHC 33.6 g/dl (32.0-35.9); MEAN CELL VOLUME 89.4 fl (80-96); MEAN PLT VOLUME 9.4 fl (7.5-11.1); PLATELET COUNT 218 10^3/uL (134-434); RBC 4.53 M/mm3 (4.00-5.60); RDW 13.6 % (11.9-15.9); WHITE BLOOD COUNT 4.9 K/mm3 (4.0-10.0)
[2022-02-08 12:35] LABS: CALCIUM 9.4 mg/dL (8.5-10.1)
[2022-02-08 12:36] LABS: ALBUMIN 3.4 g/dl (3.4-5.0); BLOOD UREA NITROGEN 11.1 mg/dL (7-18)
[2022-02-08 12:39] LABS: CREATININE 1.2 mg/dL (0.55-1.3)
[2022-02-08 12:40] LABS: BILIRUBIN,TOTAL 0.6 mg/dL (0.2-1)
[2022-02-08 12:41] LABS: TOT PROT 6.3 g/dl (6.4-8.2)
[2022-02-08 13:57] LABS: HIV INTERPRETATION NEGATIVE (NEGATIVE)
[2022-02-08] MEDS: GABAPENTIN 300 MG CAPSULE PO SCH ×2 (14:08→22:30)
[2022-02-08] MEDS ORDERED: LORazepam 1 MG TABLET PO PRN (14:42)
[2022-02-08] MEDS: LORazepam 2 MG TABLET PO SCH ×2 (18:43→22:31)
[2022-02-08] MEDS: THIAMINE HCL 100 MG TABLET (FP) PO SCH (22:31)
[2022-02-08] MEDS: QUEtiapine FUMARATE 300 MG TABLET PO SCH (22:31)
[2022-02-08] MEDS: MELATONIN 5 MG TABLETS PO SCH (22:34)
[2022-02-09] MEDS ORDERED: methaDONE HCL 40 MG DISPERSABLE TABLET PO SCH (06:00)
[2022-02-09] MEDS ORDERED: diazePAM 5 MG TABLET PO SCH (06:00)
[2022-02-09] MEDS: GABAPENTIN 300 MG CAPSULE PO SCH ×3 (07:06→22:38)
[2022-02-09] MEDS: LORazepam 1 MG TABLET PO SCH ×4 (07:06→22:38)
[2022-02-09] MEDS: NICOTINE 14 MG/24 HOURS TOPICAL PATCH TD SCH (10:14)
[2022-02-09] MEDS: PRENATAL VITAMINS W/ FOLIC ACID TABLET (FP) PO SCH (10:14)
[2022-02-09] MEDS: METHOCARBAMOL 500 MG TABLET PO PRN (10:15)
[2022-02-09] MEDS ORDERED: NICOTINE 10 MG CARTRIDGE (INHALER) IH PRN (10:48)
[2022-02-09] MEDS: THIAMINE HCL 100 MG TABLET (FP) PO SCH (22:37)
[2022-02-09] MEDS: QUEtiapine FUMARATE 300 MG TABLET PO SCH (22:38)
[2022-02-09] MEDS: MELATONIN 5 MG TABLETS PO SCH (22:41)
[2022-02-10] MEDS: LORazepam 0.5 MG TABLET PO PRN ×3 (02:26→13:31)
[2022-02-10] MEDS ORDERED: diazePAM 5 MG TABLET PO SCH (06:00)
[2022-02-10] MEDS: GABAPENTIN 300 MG CAPSULE PO SCH ×3 (06:17→22:13)
[2022-02-10] MEDS: LORazepam 0.5 MG TABLET PO SCH ×4 (06:17→22:14)
[2022-02-10] MEDS: METHOCARBAMOL 500 MG TABLET PO PRN (10:12)
[2022-02-10] MEDS: PRENATAL VITAMINS W/ FOLIC ACID TABLET (FP) PO SCH (10:12)
[2022-02-10 19:31] VITALS: RESP 18
[2022-02-10] MEDS: QUEtiapine FUMARATE 300 MG TABLET PO SCH (22:13)
[2022-02-10] MEDS: THIAMINE HCL 100 MG TABLET (FP) PO SCH (22:13)
[2022-02-10] MEDS: MELATONIN 5 MG TABLETS PO SCH (22:14)
[2022-02-11] MEDS ORDERED: LORazepam 0.5 MG TABLET PO ONE (05:00)
[2022-02-11] MEDS ORDERED: diazePAM 5 MG TABLET PO ONE (06:00)
[2022-02-11] MEDS: GABAPENTIN 300 MG CAPSULE PO SCH (06:02)
[2022-02-11 09:18] VITALS: BP 113/73; PULSE 75; TEMP 96.8
[2022-02-11] MEDS: PRENATAL VITAMINS W/ FOLIC ACID TABLET (FP) PO SCH (11:07)
== END 2022-02-11 11:30 | disposition home or self-care (01) | DRG 773 ==
LOC: YASAS 18:25 → Y6N 21:48
PROVIDERS: ADMIT Allergy & Immunology; ATTEND Surgery
PROC: HZ2ZZZZ Detoxification Services for Substance Abuse Treatment (ICD-10-PCS; principal; 2022-02-07)
DX: F13.230 Sedative, hypnotic or anxiolytic dependence with withdrawal, uncomplicated (principal); F11.20 Opioid dependence, uncomplicated; F14.20 Cocaine dependence, uncomplicated; F12.20 Cannabis dependence, uncomplicated; F17.210 Nicotine dependence, cigarettes, uncomplicated; F19.280 Other psychoactive substance dependence with psychoactive substance-induced anxiety disorder; F19.282 Other psychoactive substance dependence with psychoactive substance-induced sleep disorder; F19.24 Other psychoactive substance dependence with psychoactive substance-induced mood disorder; F25.0 Schizoaffective disorder, bipolar type; F41.9 Anxiety disorder, unspecified; Z86.69 Personal history of other diseases of the nervous system and sense organs; Z88.8 Allergy status to other drugs, medicaments and biological substances; Z91.013 Allergy to seafood
CPT/HCPCS: 36415; 80053; 85027; 86780; 87389; 87811; C9803-CS; U0003; U0005

== ENCOUNTER 2023-06-02 09:51 | Inpatient (IN) | payer BC, OTHER ==
[2023-06-02] MEDS: SODIUM CHLORIDE 1,000 ML IV STA (10:48)
[2023-06-02 10:51] LABS: BASO % 0.7 % (0-2.0); EOS % 0.2 % (0-4.5); HEMATOCRIT 29.7 % (35.4-49); HEMOGLOBIN 9.6 GM/dL (11.7-16.9); LYMPH % 9.6 % (8-40); MCHC 32.4 g/dl (32.0-35.9); MEAN CELL VOLUME 92.7 fl (80-96); MEAN PLT VOLUME 6.4 fl (7.5-11.1); NEUT % 84.5 % (42.8-82.8); PLATELET COUNT 327 10^3/uL (134-434); RBC 3.21 M/mm3 (4.00-5.60); RDW 16.2 % (11.9-15.9); WHITE BLOOD COUNT 16.1 K/mm3 (4.0-10.0)
[2023-06-02 10:59] LABS: INR 1.28 (0.83-1.09); PROTHROMBIN TIME (PATIENT) 14.8 SEC (9.7-13.0)
[2023-06-02 11:02] LABS: ACTIVATED PTT 28.7 SECONDS (25.2-36.5)
[2023-06-02 11:11] LABS: CHLORIDE 101 mmol/L (98-107); POTASSIUM 4.2 mmol/L (3.5-5.1); SODIUM 140 mmol/L (136-145)
[2023-06-02 11:13] LABS: ALBUMIN 2.5 g/dl (3.4-5.0); ANION GAP 3 mmol/L (4-13); BLOOD UREA NITROGEN 14.1 mg/dL (7-18); CALCIUM 8.4 mg/dL (8.5-10.1); CO2 36 mmol/L (21-32)
[2023-06-02 11:14] LABS: GLUCOSE,RANDOM 85 mg/dL (74-106)
[2023-06-02 11:17] LABS: CREATININE 0.6 mg/dL (0.55-1.3); SGOT/AST 11 U/L (15-37); SGPT/ALT 21 U/L (13-61)
[2023-06-02 11:17] LABS: VENOUS O2 SATURATION 48.4 % (70-80); VENOUS PCO2 60.9 mmHg (38-52); VENOUS PH 7.373 (7.310-7.410)
[2023-06-02 11:18] LABS: BILIRUBIN,TOTAL 0.3 mg/dL (0.2-1); TOT PROT 5.2 g/dl (6.4-8.2)
[2023-06-02 11:19] LABS: ALK PHOS 88 U/L (45-117)
[2023-06-02] MEDS ORDERED: CEFTRIAXONE 1 GM/50 ML BAG ONE (11:58)
[2023-06-02] MEDS ORDERED: AZITHROMYCIN IVPB 500 MG/250 ML BAG IVPB ONE (11:59)
[2023-06-02] MEDS: CEFTRIAXONE 1,000 MG in DEXTROSE 5%-WATER - 50 ML IVPB ONE (12:09)
[2023-06-02] MEDS: AZITHROMYCIN IVPB 500 MG in DEXTROSE 5%-WATER - 250 ML IVPB ONE (12:09)
[2023-06-02] MEDS: SODIUM CHLORIDE 1,000 ML IV SCH (14:25)
[2023-06-02 14:46] LABS: MAGNESIUM 1.8 mg/dL (1.8-2.4)
[2023-06-02 14:49] LABS: PHOSPHOROUS 2.4 mg/dL (2.5-4.9)
[2023-06-02] MEDS ORDERED: THIAMINE HCL 200 MG/2 ML VIAL ONE (15:15)
[2023-06-02] MEDS: THIAMINE HCL 200 MG/2 ML VIAL IVPB ONE (15:43)
[2023-06-02 16:02] LABS: PH,URINE 8.5 (5.0-8.0); URINE APPEARANCE CLEAR; URINE BILIRUBIN NEGATIVE (NEGATIVE); URINE COLOR YELLOW; URINE GLUCOSE (UA) NEGATIVE (NEGATIVE); URINE KETONE NEGATIVE (NEGATIVE); URINE LEUK ESTERASE NEGATIVE (NEGATIVE); URINE NITRITE NEGATIVE (NEGATIVE); URINE PROTEIN NEGATIVE (NEGATIVE); URINE UROBILINOGEN 0.2 mg/dL (0.2-1.0)
[2023-06-02] MEDS ORDERED: PIPERACILLIN/TAZOB 4.5 GM 4.5 GM/100 ML BAG IVPB ONE ×2 (16:06→20:54)
[2023-06-02 16:11] LABS: COCAINE, UR NEGATIVE (NEGATIVE); METHADONE, UR POSITIVE (NEGATIVE); OPIATES, URI NEGATIVE (NEGATIVE); PHENCYCLIDINE,URINE NEGATIVE (NEGATIVE); URINE AMPHETAMINES NEGATIVE (NEGATIVE); URINE BARBITURATES NEGATIVE (NEGATIVE); URINE BENZODIAZEPINES POSITIVE (NEGATIVE)
[2023-06-02] MEDS: PIPERACILLIN/TAZOB 4.5 GM 4.5 GM in DEXTROSE 5%-WATER 100 ML IVPB SCH ×2 (16:14→21:03)
[2023-06-02] MEDS ORDERED: VANCOMYCIN 1 GRAM (PRE-DOCKED) 1,000 MG/250 ML BAG IVPB ONE (16:32)
[2023-06-02 16:45] LABS: HIV INTERPRETATION NEGATIVE (NEGATIVE)
[2023-06-02] MEDS: VANCOMYCIN 1 GRAM (PRE-DOCKED) 1,000 MG/250 ML BAG IVPB ONE (16:54)
[2023-06-02 17:18] LABS: ARTERIAL BLD GAS O2 SATURATION 95.1 % (95-98); ARTERIAL BLOOD GAS BASE EXCESS 7.1 mmol/L (-2-2); ARTERIAL BLOOD GAS PO2 78.7 mmHg (80-100); ARTERIAL BLOOD GAS pH 7.377 (7.350-7.450)
[2023-06-02] MEDS: SODIUM PHOSPHATE - 15 MM in DEXTROSE 5%-WATER - 250 ML IVPB ONE (17:43)
[2023-06-02] MEDS: AMINO ACIDS/PROTEIN HYDROLYS 30 ML LIQUID.PKT PO SCH (17:43)
[2023-06-03] MEDS ORDERED: VANCOMYCIN 500 MG in DEXTROSE 5%-WATER 100 ML IVPB SCH (04:00)
[2023-06-03] MEDS: VANCOMYCIN 500 MG in DEXTROSE 5%-WATER 100 ML IVPB SCH (04:57)
[2023-06-03] MEDS: methaDONE 80 MG, methaDONE 10 MG PO SCH (06:53)
[2023-06-03] MEDS ORDERED: INSULIN (NOVOLOG) ASPART 100 UNITS/ML 10ML VIAL ONE (08:25)
[2023-06-03 08:30] LABS: BASO % 0.4 % (0-2.0); EOS % 1.1 % (0-4.5); HEMATOCRIT 28.7 % (35.4-49); HEMOGLOBIN 9.6 GM/dL (11.7-16.9); LYMPH % 10.1 % (8-40); MCH 31.1 pg (25.7-33.7); MCHC 33.3 g/dl (32.0-35.9); MEAN CELL VOLUME 93.3 fl (80-96); MEAN PLT VOLUME 6.9 fl (7.5-11.1); MONO % 5.7 % (3.8-10.2); NEUT % 82.7 % (42.8-82.8); PLATELET COUNT 287 10^3/uL (134-434); RBC 3.08 M/mm3 (4.00-5.60); RDW 16.1 % (11.9-15.9); WHITE BLOOD COUNT 10.6 K/mm3 (4.0-10.0)
[2023-06-03] MEDS ORDERED: diazePAM 5 MG TABLET PO ONE (08:34)
[2023-06-03] MEDS: VANCOMYCIN 500 MG in DEXTROSE 5%-WATER - 100 ML IVPB SCH (08:45)
[2023-06-03 08:48] LABS: CALCIUM 8.3 mg/dL (8.5-10.1)
[2023-06-03 08:50] LABS: ALBUMIN 2.5 g/dl (3.4-5.0); BLOOD UREA NITROGEN 10.7 mg/dL (7-18); MAGNESIUM 1.8 mg/dL (1.8-2.4)
[2023-06-03 08:52] LABS: CREATININE 0.6 mg/dL (0.55-1.3); PHOSPHOROUS 3.8 mg/dL (2.5-4.9)
[2023-06-03 08:54] LABS: BILIRUBIN,TOTAL 0.5 mg/dL (0.2-1); TOT PROT 5.2 g/dl (6.4-8.2)
[2023-06-03] MEDS ORDERED: methaDONE HCL 10 MG TABLET (FOR DETOX USE ONLY) PO SCH (10:00)
[2023-06-03] MEDS: diazePAM 5 MG TABLET PO ONE (11:02)
[2023-06-03] MEDS: THIAMINE HCL 100 MG TABLET (FP) PO SCH (11:02)
[2023-06-03] MEDS: ENOXAPARIN NA (PORCINE) 30 MG/0.3 ML DISP.SYRIN SQ SCH (11:03)
[2023-06-03 15:08] VITALS: BMI 13.5
[2023-06-03] MEDS: GABAPENTIN 300 MG CAPSULE PO SCH (16:22)
[2023-06-04 07:57] LABS: BASO % 0.6 % (0-2.0); EOS % 2.7 % (0-4.5); HEMATOCRIT 30.7 % (35.4-49); LYMPH % 17.8 % (8-40); MCH 30.3 pg (25.7-33.7); MCHC 32.6 g/dl (32.0-35.9); MEAN CELL VOLUME 92.9 fl (80-96); MEAN PLT VOLUME 6.8 fl (7.5-11.1); MONO % 9.2 % (3.8-10.2); NEUT % 69.7 % (42.8-82.8); PLATELET COUNT 324 10^3/uL (134-434); RBC 3.31 M/mm3 (4.00-5.60); RDW 16.2 % (11.9-15.9); WHITE BLOOD COUNT 7.5 K/mm3 (4.0-10.0)
[2023-06-04 08:22] LABS: POTASSIUM 4.2 mmol/L (3.5-5.1)
[2023-06-04 08:24] LABS: ALBUMIN 2.5 g/dl (3.4-5.0); BLOOD UREA NITROGEN 7.9 mg/dL (7-18); CALCIUM 8.3 mg/dL (8.5-10.1); MAGNESIUM 2.1 mg/dL (1.8-2.4)
[2023-06-04 08:28] LABS: CREATININE 0.7 mg/dL (0.55-1.3); PHOSPHOROUS 3.9 mg/dL (2.5-4.9)
[2023-06-04 08:30] LABS: BILIRUBIN,TOTAL 0.4 mg/dL (0.2-1); TOT PROT 5.3 g/dl (6.4-8.2)
[2023-06-04] MEDS: FOLIC ACID 1 MG TABLET (FP) PO SCH (12:19)
[2023-06-04] MEDS: LORazepam 2 MG/ML SDV VIAL IVPUSH PRN (12:19)
[2023-06-05 08:57] LABS: BASO % 0.8 % (0-2.0); EOS % 2.7 % (0-4.5); HEMATOCRIT 33.5 % (35.4-49); HEMOGLOBIN 10.9 GM/dL (11.7-16.9); LYMPH % 28.5 % (8-40); MCH 30.2 pg (25.7-33.7); MCHC 32.5 g/dl (32.0-35.9); MEAN CELL VOLUME 92.7 fl (80-96); MEAN PLT VOLUME 6.6 fl (7.5-11.1); MONO % 8.2 % (3.8-10.2); NEUT % 59.8 % (42.8-82.8); PLATELET COUNT 364 10^3/uL (134-434); RBC 3.61 M/mm3 (4.00-5.60); RDW 15.8 % (11.9-15.9); WHITE BLOOD COUNT 6.4 K/mm3 (4.0-10.0)
[2023-06-05 09:17] LABS: POTASSIUM 4.2 mmol/L (3.5-5.1)
[2023-06-05 09:20] LABS: ALBUMIN 2.5 g/dl (3.4-5.0); BLOOD UREA NITROGEN 5.5 mg/dL (7-18); CALCIUM 8.5 mg/dL (8.5-10.1); MAGNESIUM 2.2 mg/dL (1.8-2.4)
[2023-06-05 09:23] LABS: CREATININE 0.6 mg/dL (0.55-1.3); PHOSPHOROUS 3.5 mg/dL (2.5-4.9)
[2023-06-05 09:25] LABS: TOT PROT 5.5 g/dl (6.4-8.2)
[2023-06-05 09:28] LABS: BILIRUBIN,TOTAL 0.2 mg/dL (0.2-1)
[2023-06-05] MEDS: ACETAMINOPHEN 325 MG TABLET (FP) PO PRN (14:39)
[2023-06-06 08:58] LABS: BASO % 0.8 % (0-2.0); HEMATOCRIT 33.3 % (35.4-49); HEMOGLOBIN 11.2 GM/dL (11.7-16.9); LYMPH % 28.7 % (8-40); MCH 30.5 pg (25.7-33.7); MCHC 33.5 g/dl (32.0-35.9); MEAN PLT VOLUME 6.2 fl (7.5-11.1); MONO % 9.4 % (3.8-10.2); NEUT % 58.1 % (42.8-82.8); PLATELET COUNT 384 10^3/uL (134-434); RBC 3.66 M/mm3 (4.00-5.60); RDW 16.2 % (11.9-15.9); WHITE BLOOD COUNT 5.9 K/mm3 (4.0-10.0)
[2023-06-06] MEDS: AMOX TR/POT CLAV 875MG/125MG TABLETS (FP) PO SCH (09:00)
[2023-06-06 09:25] LABS: POTASSIUM 4.4 mmol/L (3.5-5.1)
[2023-06-06 09:42] LABS: CREATININE 0.9 mg/dL (0.55-1.3)
[2023-06-06 09:44] LABS: ALBUMIN 2.6 g/dl (3.4-5.0); BILIRUBIN,TOTAL 0.3 mg/dL (0.2-1)
[2023-06-06 09:55] LABS: CALCIUM 8.9 mg/dL (8.5-10.1)
[2023-06-06 09:56] LABS: BLOOD UREA NITROGEN 9.2 mg/dL (7-18)
[2023-06-06] MEDS: ONDANSETRON 4 MG/2 ML VIAL IVPUSH PRN (11:36)
[2023-06-07 09:30] LABS: BASO % 0.8 % (0-2.0); EOS % 0.8 % (0-4.5); HEMATOCRIT 34.8 % (35.4-49); HEMOGLOBIN 11.7 GM/dL (11.7-16.9); LYMPH % 29.7 % (8-40); MCH 30.8 pg (25.7-33.7); MCHC 33.7 g/dl (32.0-35.9); MEAN CELL VOLUME 91.5 fl (80-96); MEAN PLT VOLUME 6.5 fl (7.5-11.1); MONO % 8.2 % (3.8-10.2); NEUT % 60.5 % (42.8-82.8); PLATELET COUNT 466 10^3/uL (134-434); RDW 15.8 % (11.9-15.9); WHITE BLOOD COUNT 5.8 K/mm3 (4.0-10.0)
[2023-06-07 10:46] LABS: POTASSIUM 4.5 mmol/L (3.5-5.1)
[2023-06-07 10:48] LABS: CALCIUM 9.3 mg/dL (8.5-10.1)
[2023-06-07 10:49] LABS: BLOOD UREA NITROGEN 10.2 mg/dL (7-18)
[2023-06-07 10:52] LABS: CREATININE 0.7 mg/dL (0.55-1.3)
[2023-06-07 10:53] LABS: BILIRUBIN,TOTAL 0.4 mg/dL (0.2-1); TOT PROT 6.5 g/dl (6.4-8.2)
[2023-06-07] MEDS: SODIUM CHLORIDE 1,000 ML IV SCH (11:08)
[2023-06-07] MEDS: LACTOBACILLUS ACIDOPHILUS 1 TABLET PO SCH (11:21)
[2023-06-07 13:10] LABS: BASO % 0.8 % (0-2.0); EOS % 0.8 % (0-4.5); HEMATOCRIT 34.2 % (35.4-49); HEMOGLOBIN 11.4 GM/dL (11.7-16.9); LYMPH % 35.3 % (8-40); MCH 30.6 pg (25.7-33.7); MCHC 33.3 g/dl (32.0-35.9); MEAN CELL VOLUME 91.7 fl (80-96); MEAN PLT VOLUME 6.1 fl (7.5-11.1); MONO % 8.8 % (3.8-10.2); NEUT % 54.3 % (42.8-82.8); PLATELET COUNT 433 10^3/uL (134-434); RBC 3.73 M/mm3 (4.00-5.60); RDW 15.7 % (11.9-15.9); WHITE BLOOD COUNT 6.5 K/mm3 (4.0-10.0)
[2023-06-07 13:12] LABS: POTASSIUM 4.2 mmol/L (3.5-5.1)
[2023-06-07 13:14] LABS: CALCIUM 8.7 mg/dL (8.5-10.1)
[2023-06-07 13:15] LABS: ALBUMIN 2.9 g/dl (3.4-5.0); BLOOD UREA NITROGEN 10.8 mg/dL (7-18); MAGNESIUM 2.2 mg/dL (1.8-2.4)
[2023-06-07 13:18] LABS: CREATININE 0.5 mg/dL (0.55-1.3)
[2023-06-07 13:20] LABS: BILIRUBIN,TOTAL 0.2 mg/dL (0.2-1); TOT PROT 6.3 g/dl (6.4-8.2)
[2023-06-07] MEDS: SCOPOLAMINE HYDROBROMIDE 1 PATCH PATCH.TD72 TD SCH (13:43)
[2023-06-08 09:25] LABS: BASO % 0.9 % (0-2.0); EOS % 0.9 % (0-4.5); HEMATOCRIT 37.6 % (35.4-49); HEMOGLOBIN 12.4 GM/dL (11.7-16.9); MCH 30.3 pg (25.7-33.7); MCHC 33.1 g/dl (32.0-35.9); MEAN CELL VOLUME 91.7 fl (80-96); MEAN PLT VOLUME 6.3 fl (7.5-11.1); MONO % 7.8 % (3.8-10.2); NEUT % 50.4 % (42.8-82.8); PLATELET COUNT 480 10^3/uL (134-434); WHITE BLOOD COUNT 6.1 K/mm3 (4.0-10.0)
[2023-06-08] MEDS: POLYETHYLENE GLYCOL (HEALTHYLAX) 3350 17 GM PACKET PO SCH (09:54)
[2023-06-08] MEDS ORDERED: POLYETHYLENE GLYCOL (HEALTHYLAX) 3350 17 GM PACKET PO SCH (10:00)
[2023-06-08 10:32] LABS: POTASSIUM 4.6 mmol/L (3.5-5.1)
[2023-06-08 10:34] LABS: CALCIUM 9.5 mg/dL (8.5-10.1)
[2023-06-08 10:35] LABS: BLOOD UREA NITROGEN 10.4 mg/dL (7-18); MAGNESIUM 2.3 mg/dL (1.8-2.4)
[2023-06-08 10:38] LABS: CREATININE 0.6 mg/dL (0.55-1.3)
[2023-06-08 10:39] LABS: TOT PROT 6.6 g/dl (6.4-8.2)
[2023-06-08 10:40] LABS: BILIRUBIN,TOTAL 0.2 mg/dL (0.2-1)
[2023-06-09 09:42] LABS: BASO % 1.2 % (0-2.0); EOS % 1.2 % (0-4.5); HEMATOCRIT 34.4 % (35.4-49); HEMOGLOBIN 11.3 GM/dL (11.7-16.9); LYMPH % 40.3 % (8-40); MCHC 32.8 g/dl (32.0-35.9); MEAN CELL VOLUME 91.6 fl (80-96); MEAN PLT VOLUME 6.3 fl (7.5-11.1); MONO % 7.8 % (3.8-10.2); NEUT % 49.5 % (42.8-82.8); PLATELET COUNT 407 10^3/uL (134-434); RBC 3.75 M/mm3 (4.00-5.60); RDW 15.9 % (11.9-15.9); WHITE BLOOD COUNT 5.2 K/mm3 (4.0-10.0)
[2023-06-09 10:00] LABS: POTASSIUM 4.1 mmol/L (3.5-5.1)
[2023-06-09 10:05] LABS: CALCIUM 8.8 mg/dL (8.5-10.1)
[2023-06-09 10:06] LABS: ALBUMIN 2.7 g/dl (3.4-5.0); BLOOD UREA NITROGEN 9.9 mg/dL (7-18); MAGNESIUM 2.1 mg/dL (1.8-2.4)
[2023-06-09 10:09] LABS: CREATININE 0.6 mg/dL (0.55-1.3)
[2023-06-09 10:10] LABS: TOT PROT 5.8 g/dl (6.4-8.2)
[2023-06-09 10:14] LABS: BILIRUBIN,TOTAL 0.5 mg/dL (0.2-1)
[2023-06-09] MEDS ORDERED: ALBUTEROL SO4 0.083% IH SOL 2.5 MG/3 ML VIAL.NEB. NEB PRN (12:29)
[2023-06-10 10:00] LABS: BASO % 1.6 % (0-2.0); EOS % 1.2 % (0-4.5); HEMATOCRIT 33.5 % (35.4-49); HEMOGLOBIN 11.1 GM/dL (11.7-16.9); LYMPH % 44.1 % (8-40); MCH 30.4 pg (25.7-33.7); MCHC 33.2 g/dl (32.0-35.9); MEAN CELL VOLUME 91.6 fl (80-96); MEAN PLT VOLUME 6.3 fl (7.5-11.1); MONO % 7.5 % (3.8-10.2); NEUT % 45.6 % (42.8-82.8); PLATELET COUNT 429 10^3/uL (134-434); RBC 3.65 M/mm3 (4.00-5.60); WHITE BLOOD COUNT 4.4 K/mm3 (4.0-10.0)
[2023-06-10 10:24] LABS: ALBUMIN 2.8 g/dl (3.4-5.0); BLOOD UREA NITROGEN 7.9 mg/dL (7-18)
[2023-06-10 10:26] LABS: BILIRUBIN,TOTAL 0.1 mg/dL (0.2-1)
[2023-06-10 10:27] LABS: CREATININE 0.6 mg/dL (0.55-1.3)
[2023-06-12] MEDS: METOCLOPRAMIDE HCL 10 MG TABLET (FP) PO ONE (14:19)
[2023-06-12 14:28] VITALS: PULSE 75; RESP 20; TEMP 98.2
[2023-06-24 20:24] VITALS: BP 100/71
== END 2023-06-12 14:42 | disposition other institution (70) | DRG 137 ==
LOC: JER 09:51 → JERBED 11:54 → MERGE 11:54 → J8W 22:09
PROVIDERS: ADMIT Internal Medicine; ATTEND Psychiatry & Neurology Pain Medicine
PROC: HZ91ZZZ Pharmacotherapy for Substance Abuse Treatment, Methadone Maintenance (ICD-10-PCS; principal; 2023-06-02)
DX: J69.0 Pneumonitis due to inhalation of food and vomit (principal); E43 Unspecified severe protein-calorie malnutrition; E87.8 Other disorders of electrolyte and fluid balance, not elsewhere classified; J96.22 Acute and chronic respiratory failure with hypercapnia; F11.20 Opioid dependence, uncomplicated; E86.0 Dehydration; D64.9 Anemia, unspecified; F12.90 Cannabis use, unspecified, uncomplicated; F17.210 Nicotine dependence, cigarettes, uncomplicated; K56.41 Fecal impaction; R11.10 Vomiting, unspecified; R62.7 Adult failure to thrive; Z59.00 Homelessness unspecified; Z68.1 Body mass index [BMI] 19.9 or less, adult; R64 Cachexia
CPT/HCPCS: 0241U-QW; 36415; 36600; 70450-TC; 71045-TC-FY; 71046-TC-FY; 74019-TC-FY; 74177-TC; 80053; 80307; 81003; 82553; 82728; 82803; 82962; 83540; 83550; 83605; 83735; 84100; 84484; 85025; 85610; 85730; 86140; 86705; 86708; 86803; 86850; 86900; 86901; 87040; 87081; 87086; 87389; 87517; 87522; 87635; 87899; 93005; 93010; 99285-25; Q9967

== ENCOUNTER 2023-06-12 14:57 | Inpatient (IN) | payer BC, OTHER ==
[2023-06-12 15:30] VITALS: BMI 12.5
[2023-06-12] MEDS ORDERED: LOPERAMIDE HCL 2 MG CAPSULE PO PRN (16:25)
[2023-06-12] MEDS ORDERED: guaiFENesin 600 MG TABLET.ER (FP) PO PRN (16:25)
[2023-06-12] MEDS ORDERED: NALOXONE HCL 0.4 MG/ML VIAL IM PRN (16:25)
[2023-06-12] MEDS ORDERED: MAGNESIUM HYDROX 2400MG/30ML ORAL SUSPENSION 30 ML CUP PO PRN (16:25)
[2023-06-12] MEDS ORDERED: IBUPROFEN 400 MG TABLET (FP) PO PRN (16:25)
[2023-06-12] MEDS ORDERED: BENZOCAINE/MENTHOL (CHLORASEPTIC ) LOZENGE MM PRN (16:25)
[2023-06-12] MEDS ORDERED: COLLOIDAL OATMEAL 1 BAR EACH TP PRN (16:25)
[2023-06-12] MEDS ORDERED: MAG HYDROX/AL HYDROX/SIMETH 30 ML UNIT-DOSE CUP PO PRN (16:25)
[2023-06-12] MEDS ORDERED: POLYETHYLENE GLYCOL (HEALTHYLAX) 3350 17 GM PACKET PO PRN (16:25)
[2023-06-12] MEDS ORDERED: NALOXONE HCL (KLOXXADO) 8 MG SPRAY NS PRN (16:25)
[2023-06-12] MEDS ORDERED: BENZONATATE 200 MG CAPSULE PO PRN (16:25)
[2023-06-12] MEDS ORDERED: NICOTINE POLACRILEX 2 MG GUM BUC PRN (16:36)
[2023-06-12] MEDS ORDERED: MELATONIN 5 MG TABLETS PO SCH (22:00)
[2023-06-12] MEDS: THIAMINE HCL 100 MG TABLET (FP) PO SCH (22:50)
[2023-06-13] MEDS ORDERED: SENNOSIDES 8.6MG TABLET (FP) PO PRN ×2 (08:52→12:53)
[2023-06-13] MEDS ORDERED: methaDONE HCL 10 MG TABLET PO SCH (09:00)
[2023-06-13] MEDS ORDERED: PATIENT'S OWN MEDICATION (NON-FORMULARY) (Glecaprevir/Pibrentasvir [Mavyret 100-40 Mg Tabl PO SCH (10:00)
[2023-06-13] MEDS: FOLIC ACID 1 MG TABLET (FP) PO SCH (10:10)
[2023-06-13] MEDS: THIAMINE HCL 100 MG TABLET (FP) PO SCH ×2 (10:10→21:18)
[2023-06-13] MEDS: methaDONE 80 MG, methaDONE 10 MG PO SCH (10:10)
[2023-06-13] MEDS: PRENATAL VITAMINS W/ FOLIC ACID TABLET (FP) PO SCH (10:11)
[2023-06-13] MEDS: NICOTINE 14 MG/24 HOURS TOPICAL PATCH TD SCH (10:13)
[2023-06-13] MEDS: AMINO ACIDS/PROTEIN HYDROLYS 30 ML LIQUID.PKT PO SCH ×2 (11:07→17:56)
[2023-06-13 13:06] LABS: HEMATOCRIT 37.3 % (35.4-49); HEMOGLOBIN 12.2 GM/dL (11.7-16.9); MCHC 32.7 g/dl (32.0-35.9); MEAN CELL VOLUME 91.8 fl (80-96); MEAN PLT VOLUME 6.8 fl (7.5-11.1); PLATELET COUNT 420 10^3/uL (134-434); RBC 4.07 M/mm3 (4.00-5.60); RDW 16.2 % (11.9-15.9); WHITE BLOOD COUNT 6.1 K/mm3 (4.0-10.0)
[2023-06-13 13:22] LABS: CHLORIDE 97 mmol/L (98-107); POTASSIUM 4.6 mmol/L (3.5-5.1); SODIUM 135 mmol/L (136-145)
[2023-06-13 13:26] LABS: ALBUMIN 3.3 g/dl (3.4-5.0); ANION GAP 4 mmol/L (4-13); BLOOD UREA NITROGEN 11.3 mg/dL (7-18); CALCIUM 9.9 mg/dL (8.5-10.1); CO2 34 mmol/L (21-32); GLUCOSE,RANDOM 81 mg/dL (74-106)
[2023-06-13] MEDS: GABAPENTIN 300 MG CAPSULE PO SCH ×2 (13:27→21:17)
[2023-06-13 13:29] LABS: CREATININE 0.7 mg/dL (0.55-1.3); SGOT/AST 10 U/L (15-37); SGPT/ALT 20 U/L (13-61)
[2023-06-13 13:31] LABS: BILIRUBIN,TOTAL 0.2 mg/dL (0.2-1); TOT PROT 6.6 g/dl (6.4-8.2)
[2023-06-13 13:32] LABS: ALK PHOS 74 U/L (45-117)
[2023-06-13] MEDS: AMOX TR/POT CLAV 875MG/125MG TABLETS (FP) PO SCH (17:56)
[2023-06-13] MEDS: SUVOREXANT 10 MG TABLET PO PRN (21:18)
[2023-06-14] MEDS: GABAPENTIN 300 MG CAPSULE PO SCH ×3 (06:26→21:12)
[2023-06-14] MEDS: methaDONE 80 MG, methaDONE 10 MG PO SCH (06:26)
[2023-06-14] MEDS: AMOX TR/POT CLAV 875MG/125MG TABLETS (FP) PO SCH ×2 (07:52→17:25)
[2023-06-14] MEDS: AMINO ACIDS/PROTEIN HYDROLYS 30 ML LIQUID.PKT PO SCH ×3 (07:52→17:25)
[2023-06-14] MEDS: FOLIC ACID 1 MG TABLET (FP) PO SCH (09:39)
[2023-06-14] MEDS: NICOTINE 14 MG/24 HOURS TOPICAL PATCH TD SCH (09:40)
[2023-06-14] MEDS: PRENATAL VITAMINS W/ FOLIC ACID TABLET (FP) PO SCH (09:40)
[2023-06-14] MEDS: PATIENT'S OWN MEDICATION (NON-FORMULARY) (Glecaprevir/Pibrentasvir [Mavyret 100-40 Mg Tabl PO SCH (09:42)
[2023-06-14] MEDS: THIAMINE HCL 100 MG TABLET (FP) PO SCH ×2 (09:44→21:12)
[2023-06-14 17:25] LABS: PH,URINE 6.5 (5.0-8.0); URINE APPEARANCE CLEAR; URINE BILIRUBIN NEGATIVE (NEGATIVE); URINE COLOR YELLOW; URINE GLUCOSE (UA) NEGATIVE (NEGATIVE); URINE KETONE NEGATIVE (NEGATIVE); URINE LEUK ESTERASE NEGATIVE (NEGATIVE); URINE NITRITE NEGATIVE (NEGATIVE); URINE PROTEIN NEGATIVE (NEGATIVE); URINE UROBILINOGEN 0.2 mg/dL (0.2-1.0)
[2023-06-14] MEDS: SUVOREXANT 10 MG TABLET PO PRN (21:13)
[2023-06-15] MEDS: methaDONE 80 MG, methaDONE 10 MG PO SCH (06:27)
[2023-06-15] MEDS: GABAPENTIN 300 MG CAPSULE PO SCH ×3 (06:28→21:09)
[2023-06-15] MEDS: AMOX TR/POT CLAV 875MG/125MG TABLETS (FP) PO SCH ×2 (07:59→17:35)
[2023-06-15] MEDS: PRENATAL VITAMINS W/ FOLIC ACID TABLET (FP) PO SCH (09:40)
[2023-06-15] MEDS: FOLIC ACID 1 MG TABLET (FP) PO SCH (09:41)
[2023-06-15] MEDS: THIAMINE HCL 100 MG TABLET (FP) PO SCH ×2 (09:41→21:09)
[2023-06-15] MEDS: NICOTINE 14 MG/24 HOURS TOPICAL PATCH TD SCH (09:41)
[2023-06-15] MEDS: AMINO ACIDS/PROTEIN HYDROLYS 30 ML LIQUID.PKT PO SCH ×3 (09:42→17:35)
[2023-06-15] MEDS: PATIENT'S OWN MEDICATION (NON-FORMULARY) (Glecaprevir/Pibrentasvir [Mavyret 100-40 Mg Tabl PO SCH (09:43)
[2023-06-15] MEDS: SUVOREXANT 10 MG TABLET PO PRN (21:10)
[2023-06-16] MEDS: methaDONE 80 MG, methaDONE 10 MG PO SCH (05:46)
[2023-06-16] MEDS: GABAPENTIN 300 MG CAPSULE PO SCH ×3 (05:47→21:26)
[2023-06-16] MEDS: AMOX TR/POT CLAV 875MG/125MG TABLETS (FP) PO SCH ×2 (07:07→17:36)
[2023-06-16] MEDS: AMINO ACIDS/PROTEIN HYDROLYS 30 ML LIQUID.PKT PO SCH ×3 (07:07→17:37)
[2023-06-16] MEDS: NICOTINE 14 MG/24 HOURS TOPICAL PATCH TD SCH (09:35)
[2023-06-16] MEDS: PRENATAL VITAMINS W/ FOLIC ACID TABLET (FP) PO SCH (09:35)
[2023-06-16] MEDS: FOLIC ACID 1 MG TABLET (FP) PO SCH (09:35)
[2023-06-16] MEDS: THIAMINE HCL 100 MG TABLET (FP) PO SCH ×2 (09:35→21:27)
[2023-06-16] MEDS: PATIENT'S OWN MEDICATION (NON-FORMULARY) (Glecaprevir/Pibrentasvir [Mavyret 100-40 Mg Tabl PO SCH (09:36)
[2023-06-16] MEDS: IBUPROFEN 600 MG TABLET (FP) PO PRN (13:43)
[2023-06-16] MEDS: SUVOREXANT 10 MG TABLET PO PRN (21:26)
[2023-06-17] MEDS: GABAPENTIN 300 MG CAPSULE PO SCH ×3 (06:10→21:22)
[2023-06-17] MEDS: methaDONE 80 MG, methaDONE 10 MG PO SCH (06:11)
[2023-06-17] MEDS: AMINO ACIDS/PROTEIN HYDROLYS 30 ML LIQUID.PKT PO SCH ×3 (07:48→17:36)
[2023-06-17] MEDS: FOLIC ACID 1 MG TABLET (FP) PO SCH (09:42)
[2023-06-17] MEDS: PRENATAL VITAMINS W/ FOLIC ACID TABLET (FP) PO SCH (09:42)
[2023-06-17] MEDS: NICOTINE 14 MG/24 HOURS TOPICAL PATCH TD SCH (09:42)
[2023-06-17] MEDS: THIAMINE HCL 100 MG TABLET (FP) PO SCH ×2 (09:42→21:22)
[2023-06-17] MEDS: AMOX TR/POT CLAV 875MG/125MG TABLETS (FP) PO SCH ×2 (09:45→17:36)
[2023-06-17] MEDS: PATIENT'S OWN MEDICATION (NON-FORMULARY) (Glecaprevir/Pibrentasvir [Mavyret 100-40 Mg Tabl PO SCH (09:45)
[2023-06-17] MEDS: SUVOREXANT 10 MG TABLET PO PRN (21:22)
[2023-06-18] MEDS: methaDONE 80 MG, methaDONE 10 MG PO SCH (06:12)
[2023-06-18] MEDS: GABAPENTIN 300 MG CAPSULE PO SCH ×3 (06:12→21:20)
[2023-06-18] MEDS: AMINO ACIDS/PROTEIN HYDROLYS 30 ML LIQUID.PKT PO SCH ×3 (07:08→17:40)
[2023-06-18] MEDS: AMOX TR/POT CLAV 875MG/125MG TABLETS (FP) PO SCH ×2 (08:15→17:40)
[2023-06-18] MEDS: PRENATAL VITAMINS W/ FOLIC ACID TABLET (FP) PO SCH (09:54)
[2023-06-18] MEDS: NICOTINE 14 MG/24 HOURS TOPICAL PATCH TD SCH (09:54)
[2023-06-18] MEDS: FOLIC ACID 1 MG TABLET (FP) PO SCH (09:55)
[2023-06-18] MEDS: THIAMINE HCL 100 MG TABLET (FP) PO SCH ×2 (09:55→21:21)
[2023-06-18] MEDS: PATIENT'S OWN MEDICATION (NON-FORMULARY) (Glecaprevir/Pibrentasvir [Mavyret 100-40 Mg Tabl PO SCH (09:55)
[2023-06-18] MEDS: SUVOREXANT 10 MG TABLET PO PRN (21:19)
[2023-06-19] MEDS: methaDONE 80 MG, methaDONE 10 MG PO SCH (06:32)
[2023-06-19] MEDS: GABAPENTIN 300 MG CAPSULE PO SCH ×3 (06:33→21:18)
[2023-06-19] MEDS: AMINO ACIDS/PROTEIN HYDROLYS 30 ML LIQUID.PKT PO SCH ×2 (08:30→11:59)
[2023-06-19] MEDS: PRENATAL VITAMINS W/ FOLIC ACID TABLET (FP) PO SCH (09:52)
[2023-06-19] MEDS: THIAMINE HCL 100 MG TABLET (FP) PO SCH ×2 (09:52→21:18)
[2023-06-19] MEDS: AMOX TR/POT CLAV 875MG/125MG TABLETS (FP) PO SCH ×2 (09:52→17:38)
[2023-06-19] MEDS: FOLIC ACID 1 MG TABLET (FP) PO SCH (09:52)
[2023-06-19] MEDS: PATIENT'S OWN MEDICATION (NON-FORMULARY) (Glecaprevir/Pibrentasvir [Mavyret 100-40 Mg Tabl PO SCH (09:53)
[2023-06-19] MEDS: NICOTINE 14 MG/24 HOURS TOPICAL PATCH TD SCH (09:53)
[2023-06-19] MEDS ORDERED: AMINO ACIDS/PROTEIN HYDROLYS 30 ML LIQUID.PKT PO PRN (12:31)
[2023-06-19] MEDS: SUVOREXANT 10 MG TABLET PO PRN (21:18)
[2023-06-20] MEDS: GABAPENTIN 300 MG CAPSULE PO SCH ×3 (06:02→21:16)
[2023-06-20] MEDS: methaDONE 80 MG, methaDONE 10 MG PO SCH (06:02)
[2023-06-20] MEDS: AMOX TR/POT CLAV 875MG/125MG TABLETS (FP) PO SCH (08:04)
[2023-06-20] MEDS: FOLIC ACID 1 MG TABLET (FP) PO SCH (09:53)
[2023-06-20] MEDS: THIAMINE HCL 100 MG TABLET (FP) PO SCH ×2 (09:53→21:17)
[2023-06-20] MEDS: NICOTINE 14 MG/24 HOURS TOPICAL PATCH TD SCH (09:53)
[2023-06-20] MEDS: PATIENT'S OWN MEDICATION (NON-FORMULARY) (Glecaprevir/Pibrentasvir [Mavyret 100-40 Mg Tabl PO SCH (09:54)
[2023-06-20] MEDS: PRENATAL VITAMINS W/ FOLIC ACID TABLET (FP) PO SCH (10:24)
[2023-06-20] MEDS: ACETAMINOPHEN 325 MG TABLET (FP) PO PRN (13:19)
[2023-06-20] MEDS: SUVOREXANT 10 MG TABLET PO PRN (21:17)
[2023-06-21] MEDS: GABAPENTIN 300 MG CAPSULE PO SCH ×3 (06:15→21:23)
[2023-06-21] MEDS: methaDONE 80 MG, methaDONE 10 MG PO SCH (06:15)
[2023-06-21] MEDS: NICOTINE 14 MG/24 HOURS TOPICAL PATCH TD SCH (09:44)
[2023-06-21] MEDS: PRENATAL VITAMINS W/ FOLIC ACID TABLET (FP) PO SCH (09:44)
[2023-06-21] MEDS: THIAMINE HCL 100 MG TABLET (FP) PO SCH ×2 (09:44→21:23)
[2023-06-21] MEDS: FOLIC ACID 1 MG TABLET (FP) PO SCH (09:44)
[2023-06-21] MEDS: PATIENT'S OWN MEDICATION (NON-FORMULARY) (Glecaprevir/Pibrentasvir [Mavyret 100-40 Mg Tabl PO SCH (09:45)
[2023-06-21] MEDS: SUVOREXANT 10 MG TABLET PO PRN (21:22)
[2023-06-22] MEDS: methaDONE 80 MG, methaDONE 10 MG PO SCH (06:21)
[2023-06-22] MEDS: GABAPENTIN 300 MG CAPSULE PO SCH ×3 (06:21→21:23)
[2023-06-22] MEDS: NICOTINE 14 MG/24 HOURS TOPICAL PATCH TD SCH (09:46)
[2023-06-22] MEDS: THIAMINE HCL 100 MG TABLET (FP) PO SCH ×2 (09:46→21:23)
[2023-06-22] MEDS: PATIENT'S OWN MEDICATION (NON-FORMULARY) (Glecaprevir/Pibrentasvir [Mavyret 100-40 Mg Tabl PO SCH (09:46)
[2023-06-22] MEDS: FOLIC ACID 1 MG TABLET (FP) PO SCH (09:46)
[2023-06-22] MEDS: PRENATAL VITAMINS W/ FOLIC ACID TABLET (FP) PO SCH (09:46)
[2023-06-22] MEDS: SUVOREXANT 10 MG TABLET PO PRN (21:23)
[2023-06-23] MEDS: methaDONE 80 MG, methaDONE 10 MG PO SCH (06:17)
[2023-06-23] MEDS: GABAPENTIN 300 MG CAPSULE PO SCH ×3 (06:17→21:10)
[2023-06-23] MEDS: FOLIC ACID 1 MG TABLET (FP) PO SCH (09:42)
[2023-06-23] MEDS: THIAMINE HCL 100 MG TABLET (FP) PO SCH ×2 (09:42→21:10)
[2023-06-23] MEDS: PRENATAL VITAMINS W/ FOLIC ACID TABLET (FP) PO SCH (09:42)
[2023-06-23] MEDS: NICOTINE 14 MG/24 HOURS TOPICAL PATCH TD SCH (09:42)
[2023-06-23] MEDS: PATIENT'S OWN MEDICATION (NON-FORMULARY) (Glecaprevir/Pibrentasvir [Mavyret 100-40 Mg Tabl PO SCH (09:43)
[2023-06-23] MEDS: SUVOREXANT 10 MG TABLET PO PRN (21:10)
[2023-06-24] MEDS: GABAPENTIN 300 MG CAPSULE PO SCH ×3 (06:06→21:04)
[2023-06-24] MEDS: methaDONE 80 MG, methaDONE 10 MG PO SCH (06:07)
[2023-06-24] MEDS: THIAMINE HCL 100 MG TABLET (FP) PO SCH ×2 (09:38→21:04)
[2023-06-24] MEDS: PRENATAL VITAMINS W/ FOLIC ACID TABLET (FP) PO SCH (09:38)
[2023-06-24] MEDS: FOLIC ACID 1 MG TABLET (FP) PO SCH (09:38)
[2023-06-24] MEDS: NICOTINE 14 MG/24 HOURS TOPICAL PATCH TD SCH (09:39)
[2023-06-24] MEDS: PATIENT'S OWN MEDICATION (NON-FORMULARY) (Glecaprevir/Pibrentasvir [Mavyret 100-40 Mg Tabl PO SCH (09:40)
[2023-06-24] MEDS: SUVOREXANT 10 MG TABLET PO PRN (21:04)
[2023-06-25] MEDS: GABAPENTIN 300 MG CAPSULE PO SCH ×3 (06:19→21:06)
[2023-06-25] MEDS: methaDONE 80 MG, methaDONE 10 MG PO SCH (06:19)
[2023-06-25] MEDS: FOLIC ACID 1 MG TABLET (FP) PO SCH (09:46)
[2023-06-25] MEDS: THIAMINE HCL 100 MG TABLET (FP) PO SCH ×2 (09:46→21:07)
[2023-06-25] MEDS: PRENATAL VITAMINS W/ FOLIC ACID TABLET (FP) PO SCH (09:46)
[2023-06-25] MEDS: NICOTINE 14 MG/24 HOURS TOPICAL PATCH TD SCH (09:47)
[2023-06-25] MEDS: PATIENT'S OWN MEDICATION (NON-FORMULARY) (Glecaprevir/Pibrentasvir [Mavyret 100-40 Mg Tabl PO SCH (09:48)
[2023-06-25] MEDS: SUVOREXANT 10 MG TABLET PO PRN (21:08)
[2023-06-26] MEDS: GABAPENTIN 300 MG CAPSULE PO SCH ×3 (06:11→21:12)
[2023-06-26] MEDS: methaDONE 80 MG, methaDONE 10 MG PO SCH (06:11)
[2023-06-26] MEDS: NICOTINE 14 MG/24 HOURS TOPICAL PATCH TD SCH (09:35)
[2023-06-26] MEDS: THIAMINE HCL 100 MG TABLET (FP) PO SCH ×2 (09:35→21:12)
[2023-06-26] MEDS: FOLIC ACID 1 MG TABLET (FP) PO SCH (09:35)
[2023-06-26] MEDS: PRENATAL VITAMINS W/ FOLIC ACID TABLET (FP) PO SCH (09:37)
[2023-06-26] MEDS: PATIENT'S OWN MEDICATION (NON-FORMULARY) (Glecaprevir/Pibrentasvir [Mavyret 100-40 Mg Tabl PO SCH (09:37)
[2023-06-26] MEDS: SUVOREXANT 10 MG TABLET PO PRN (21:12)
[2023-06-27] MEDS: methaDONE 80 MG, methaDONE 10 MG PO SCH (06:02)
[2023-06-27] MEDS: GABAPENTIN 300 MG CAPSULE PO SCH ×3 (06:03→21:29)
[2023-06-27] MEDS: ACETAMINOPHEN 325 MG TABLET (FP) PO PRN (06:03)
[2023-06-27] MEDS: FOLIC ACID 1 MG TABLET (FP) PO SCH (09:50)
[2023-06-27] MEDS: NICOTINE 14 MG/24 HOURS TOPICAL PATCH TD SCH (09:51)
[2023-06-27] MEDS: PRENATAL VITAMINS W/ FOLIC ACID TABLET (FP) PO SCH (09:51)
[2023-06-27] MEDS: THIAMINE HCL 100 MG TABLET (FP) PO SCH ×2 (09:51→21:29)
[2023-06-27] MEDS: PATIENT'S OWN MEDICATION (NON-FORMULARY) (Glecaprevir/Pibrentasvir [Mavyret 100-40 Mg Tabl PO SCH (09:52)
[2023-06-27] MEDS: SUVOREXANT 10 MG TABLET PO PRN (21:31)
[2023-06-28] MEDS: methaDONE 80 MG, methaDONE 10 MG PO SCH (06:23)
[2023-06-28] MEDS: GABAPENTIN 300 MG CAPSULE PO SCH ×3 (06:24→21:22)
[2023-06-28] MEDS: NICOTINE 14 MG/24 HOURS TOPICAL PATCH TD SCH (09:50)
[2023-06-28] MEDS: FOLIC ACID 1 MG TABLET (FP) PO SCH (09:50)
[2023-06-28] MEDS: THIAMINE HCL 100 MG TABLET (FP) PO SCH ×2 (09:50→21:22)
[2023-06-28] MEDS: PRENATAL VITAMINS W/ FOLIC ACID TABLET (FP) PO SCH (09:50)
[2023-06-28] MEDS: ACETAMINOPHEN 325 MG TABLET (FP) PO PRN (09:52)
[2023-06-28] MEDS: PATIENT'S OWN MEDICATION (NON-FORMULARY) (Glecaprevir/Pibrentasvir [Mavyret 100-40 Mg Tabl PO SCH (10:41)
[2023-06-28] MEDS: IBUPROFEN 600 MG TABLET (FP) PO PRN (14:30)
[2023-06-28] MEDS: SUVOREXANT 10 MG TABLET PO PRN (21:22)
[2023-06-29] MEDS: ACETAMINOPHEN 325 MG TABLET (FP) PO PRN ×2 (06:15→13:36)
[2023-06-29] MEDS: methaDONE 80 MG, methaDONE 10 MG PO SCH (06:15)
[2023-06-29] MEDS: GABAPENTIN 300 MG CAPSULE PO SCH ×3 (06:15→21:05)
[2023-06-29] MEDS: PRENATAL VITAMINS W/ FOLIC ACID TABLET (FP) PO SCH (09:53)
[2023-06-29] MEDS: FOLIC ACID 1 MG TABLET (FP) PO SCH (09:53)
[2023-06-29] MEDS: THIAMINE HCL 100 MG TABLET (FP) PO SCH ×2 (09:53→21:05)
[2023-06-29] MEDS: NICOTINE 14 MG/24 HOURS TOPICAL PATCH TD SCH (09:53)
[2023-06-29] MEDS: SUVOREXANT 10 MG TABLET PO PRN (21:05)
[2023-06-30] MEDS: methaDONE 80 MG, methaDONE 10 MG PO SCH (06:02)
[2023-06-30] MEDS: GABAPENTIN 300 MG CAPSULE PO SCH ×3 (06:03→21:06)
[2023-06-30] MEDS: ACETAMINOPHEN 325 MG TABLET (FP) PO PRN ×2 (06:03→13:42)
[2023-06-30] MEDS: THIAMINE HCL 100 MG TABLET (FP) PO SCH ×2 (09:45→21:06)
[2023-06-30] MEDS: FOLIC ACID 1 MG TABLET (FP) PO SCH (09:45)
[2023-06-30] MEDS: NICOTINE 14 MG/24 HOURS TOPICAL PATCH TD SCH (09:46)
[2023-06-30] MEDS: PRENATAL VITAMINS W/ FOLIC ACID TABLET (FP) PO SCH (09:46)
[2023-06-30] MEDS: SUVOREXANT 10 MG TABLET PO PRN (21:06)
[2023-07-01] MEDS: methaDONE 80 MG, methaDONE 10 MG PO SCH (06:04)
[2023-07-01] MEDS: GABAPENTIN 300 MG CAPSULE PO SCH ×3 (06:04→21:06)
[2023-07-01] MEDS: PRENATAL VITAMINS W/ FOLIC ACID TABLET (FP) PO SCH (09:46)
[2023-07-01] MEDS: NICOTINE 14 MG/24 HOURS TOPICAL PATCH TD SCH (09:46)
[2023-07-01] MEDS: THIAMINE HCL 100 MG TABLET (FP) PO SCH ×2 (09:47→21:06)
[2023-07-01] MEDS: FOLIC ACID 1 MG TABLET (FP) PO SCH (09:47)
[2023-07-01] MEDS: SUVOREXANT 10 MG TABLET PO PRN (21:06)
[2023-07-02] MEDS: methaDONE 80 MG, methaDONE 10 MG PO SCH (06:01)
[2023-07-02] MEDS: GABAPENTIN 300 MG CAPSULE PO SCH ×3 (06:01→21:18)
[2023-07-02] MEDS: PRENATAL VITAMINS W/ FOLIC ACID TABLET (FP) PO SCH (09:44)
[2023-07-02] MEDS: FOLIC ACID 1 MG TABLET (FP) PO SCH (09:44)
[2023-07-02] MEDS: NICOTINE 14 MG/24 HOURS TOPICAL PATCH TD SCH (09:44)
[2023-07-02] MEDS: THIAMINE HCL 100 MG TABLET (FP) PO SCH ×2 (09:44→21:18)
[2023-07-02] MEDS: ACETAMINOPHEN 325 MG TABLET (FP) PO PRN ×2 (09:46→21:18)
[2023-07-02] MEDS: SUVOREXANT 10 MG TABLET PO PRN (21:18)
[2023-07-03] MEDS: methaDONE 80 MG, methaDONE 10 MG PO SCH (06:03)
[2023-07-03] MEDS: GABAPENTIN 300 MG CAPSULE PO SCH ×3 (06:04→21:09)
[2023-07-03] MEDS: NICOTINE 14 MG/24 HOURS TOPICAL PATCH TD SCH (09:47)
[2023-07-03] MEDS: FOLIC ACID 1 MG TABLET (FP) PO SCH (09:47)
[2023-07-03] MEDS: PRENATAL VITAMINS W/ FOLIC ACID TABLET (FP) PO SCH (09:47)
[2023-07-03] MEDS: THIAMINE HCL 100 MG TABLET (FP) PO SCH ×2 (09:48→21:09)
[2023-07-03] MEDS: ACETAMINOPHEN 325 MG TABLET (FP) PO PRN (09:48)
[2023-07-03] MEDS: IBUPROFEN 600 MG TABLET (FP) PO PRN (21:09)
[2023-07-03] MEDS: SUVOREXANT 10 MG TABLET PO PRN (21:09)
[2023-07-04] MEDS: GABAPENTIN 300 MG CAPSULE PO SCH (06:05)
[2023-07-04] MEDS: methaDONE 80 MG, methaDONE 10 MG PO SCH (06:05)
[2023-07-04 06:57] VITALS: BP 93/69; PULSE 100; RESP 18; TEMP 97.4
[2023-07-04] MEDS: PRENATAL VITAMINS W/ FOLIC ACID TABLET (FP) PO SCH (09:45)
[2023-07-04] MEDS: NICOTINE 14 MG/24 HOURS TOPICAL PATCH TD SCH (09:45)
[2023-07-04] MEDS: FOLIC ACID 1 MG TABLET (FP) PO SCH (09:46)
[2023-07-04] MEDS: THIAMINE HCL 100 MG TABLET (FP) PO SCH (09:46)
== END 2023-07-04 10:16 | disposition home or self-care (01) | DRG 772 ==
LOC: YASAS 14:57 → MERGE 21:58 → Y5N 21:58
PROVIDERS: ADMIT Allergy & Immunology; ATTEND Psychiatry & Neurology Pain Medicine
PROC: HZ42ZZZ Group Counseling for Substance Abuse Treatment, Cognitive-Behavioral (ICD-10-PCS; principal; 2023-06-12)
DX: F13.20 Sedative, hypnotic or anxiolytic dependence, uncomplicated (principal); F11.20 Opioid dependence, uncomplicated; F14.20 Cocaine dependence, uncomplicated; F12.20 Cannabis dependence, uncomplicated; F17.210 Nicotine dependence, cigarettes, uncomplicated; F19.282 Other psychoactive substance dependence with psychoactive substance-induced sleep disorder; F19.24 Other psychoactive substance dependence with psychoactive substance-induced mood disorder; F41.9 Anxiety disorder, unspecified; F32.A Depression, unspecified; F43.10 Post-traumatic stress disorder, unspecified; J18.9 Pneumonia, unspecified organism; Z56.0 Unemployment, unspecified; Z59.00 Homelessness unspecified
CPT/HCPCS: 36415; 80053; 80307; 81003; 85027; 86780; 87635

== ENCOUNTER 2023-09-21 19:49 | Inpatient (IN) | payer BC ==
[2023-09-21 20:40] VITALS: BMI 18.1
[2023-09-21] MEDS ORDERED: POLYETHYLENE GLYCOL (HEALTHYLAX) 3350 17 GM PACKET PO PRN (23:59)
[2023-09-21] MEDS ORDERED: MAGNESIUM HYDROX 2400MG/30ML ORAL SUSPENSION 30 ML CUP PO PRN (23:59)
[2023-09-21] MEDS ORDERED: MAG HYDROX/AL HYDROX/SIMETH 30 ML UNIT-DOSE CUP PO PRN (23:59)
[2023-09-21] MEDS ORDERED: NALOXONE HCL (KLOXXADO) 8 MG SPRAY NS PRN (23:59)
[2023-09-21] MEDS ORDERED: guaiFENesin 600 MG TABLET.ER (FP) PO PRN (23:59)
[2023-09-21] MEDS ORDERED: NICOTINE POLACRILEX 2 MG GUM BUC PRN (23:59)
[2023-09-21] MEDS ORDERED: BISMUTH SUBSALICYLATE 524 MG/30 ML PO PRN (23:59)
[2023-09-21] MEDS ORDERED: ACETAMINOPHEN 325 MG TABLET (FP) PO PRN (23:59)
[2023-09-21] MEDS ORDERED: IBUPROFEN 400 MG TABLET (FP) PO PRN (23:59)
[2023-09-21] MEDS ORDERED: BENZOCAINE/MENTHOL (CHLORASEPTIC ) LOZENGE MM PRN (23:59)
[2023-09-21] MEDS ORDERED: ONDANSETRON *ODT* 4 MG TABLET SL PRN (23:59)
[2023-09-21] MEDS ORDERED: IBUPROFEN 600 MG TABLET (FP) PO PRN (23:59)
[2023-09-21] MEDS ORDERED: LOPERAMIDE HCL 2 MG CAPSULE PO PRN (23:59)
[2023-09-21] MEDS ORDERED: BENZONATATE 200 MG CAPSULE PO PRN (23:59)
[2023-09-21] MEDS ORDERED: DICYCLOMINE HCL 10 MG CAPSULE PO PRN (23:59)
[2023-09-21] MEDS ORDERED: NALOXONE HCL 0.4 MG/ML VIAL IM PRN (23:59)
[2023-09-22] MEDS ORDERED: diazePAM 5 MG TABLET ONE (00:52)
[2023-09-22] MEDS: diazePAM 5 MG TABLET PO PRN (00:56)
[2023-09-22] MEDS: diazePAM 5 MG TABLET PO SCH (05:39)
[2023-09-22] MEDS: PRENATAL VITAMINS W/ FOLIC ACID TABLET (FP) PO SCH (09:38)
[2023-09-22] MEDS: NICOTINE 14 MG/24 HOURS TOPICAL PATCH TD SCH (09:40)
[2023-09-22] MEDS: methaDONE HCL 10 MG TABLET PO ONE (09:41)
[2023-09-22 11:43] LABS: HEMATOCRIT 33.9 % (35.4-49); HEMOGLOBIN 11.1 GM/dL (11.7-16.9); MCH 29.4 pg (25.7-33.7); MCHC 32.8 g/dl (32.0-35.9); MEAN CELL VOLUME 89.7 fl (80-96); MEAN PLT VOLUME 7.4 fl (7.5-11.1); PLATELET COUNT 341 10^3/uL (134-434); RBC 3.78 M/mm3 (4.00-5.60); RDW 14.8 % (11.9-15.9); WHITE BLOOD COUNT 6.9 K/mm3 (4.0-10.0)
[2023-09-22 11:46] LABS: CHLORIDE 107 mmol/L (98-107); SODIUM 141 mmol/L (136-145)
[2023-09-22 12:11] LABS: CALCIUM 8.5 mg/dL (8.5-10.1)
[2023-09-22 12:12] LABS: ALBUMIN 2.8 g/dl (3.4-5.0); ANION GAP 5 mmol/L (4-13); BLOOD UREA NITROGEN 19.2 mg/dL (7-18); CO2 29 mmol/L (21-32); GLUCOSE,RANDOM 88 mg/dL (74-106)
[2023-09-22 12:14] LABS: CREATININE 0.9 mg/dL (0.55-1.3)
[2023-09-22 12:15] LABS: SGOT/AST 4 U/L (15-37); SGPT/ALT 12 U/L (13-61)
[2023-09-22 12:16] LABS: BILIRUBIN,TOTAL 0.1 mg/dL (0.2-1); TOT PROT 5.5 g/dl (6.4-8.2)
[2023-09-22 12:17] LABS: ALK PHOS 85 U/L (45-117)
[2023-09-22] MEDS ORDERED: MELATONIN 5 MG TABLETS PO SCH (22:00)
[2023-09-22] MEDS: SUVOREXANT 10 MG TABLET PO PRN (22:32)
[2023-09-22] MEDS: THIAMINE HCL 100 MG TABLET (FP) PO SCH (22:33)
[2023-09-23] MEDS: diazePAM 5 MG TABLET PO SCH (05:44)
[2023-09-23] MEDS ORDERED: methaDONE HCL 10 MG TABLET PO SCH (06:00)
[2023-09-23] MEDS: METHOCARBAMOL 500 MG TABLET PO PRN (08:07)
[2023-09-24] MEDS: hydrOXYzine PAMOATE 25 MG CAPSULE (FP) PO PRN (03:49)
[2023-09-24] MEDS: diazePAM 5 MG TABLET PO SCH (05:53)
[2023-09-25] MEDS: diazePAM 5 MG TABLET PO ONE (05:28)
[2023-09-25 09:02] VITALS: RESP 18; TEMP 97.8
[2023-09-25 13:00] VITALS: BP 105/74; PULSE 102
== END 2023-09-25 12:25 | disposition home or self-care (01) | DRG 773 ==
LOC: YASAS 19:49 → Y6N 09-22 01:18
PROVIDERS: ADMIT Allergy & Immunology; ATTEND Surgery
PROC: HZ2ZZZZ Detoxification Services for Substance Abuse Treatment (ICD-10-PCS; principal; 2023-09-22)
DX: F13.230 Sedative, hypnotic or anxiolytic dependence with withdrawal, uncomplicated (principal); F14.20 Cocaine dependence, uncomplicated; F11.20 Opioid dependence, uncomplicated; F17.210 Nicotine dependence, cigarettes, uncomplicated; F19.280 Other psychoactive substance dependence with psychoactive substance-induced anxiety disorder; F19.282 Other psychoactive substance dependence with psychoactive substance-induced sleep disorder; F19.24 Other psychoactive substance dependence with psychoactive substance-induced mood disorder; F32.A Depression, unspecified; R63.4 Abnormal weight loss; Z68.1 Body mass index [BMI] 19.9 or less, adult; Z56.0 Unemployment, unspecified; Z59.00 Homelessness unspecified; Z88.8 Allergy status to other drugs, medicaments and biological substances
CPT/HCPCS: 36415; 80053; 80305; 80307; 85027; 86780; 93005; 93010

== ENCOUNTER 2025-02-20 19:51 | Inpatient (IN) | payer BC, OTHER ==
[2025-02-20 20:08] VITALS: BMI 28.2
[2025-02-20] MEDS ORDERED: BISMUTH SUBSALICYLATE 524 MG/30 ML PO PRN (20:49)
[2025-02-20] MEDS ORDERED: NICOTINE POLACRILEX 4 MG GUM BUC PRN (20:49)
[2025-02-20] MEDS ORDERED: MAG HYDROX/AL HYDROX/SIMETH 30 ML UNIT-DOSE CUP PO PRN (20:49)
[2025-02-20] MEDS ORDERED: ACETAMINOPHEN 325 MG TABLET (FP) PO PRN (20:49)
[2025-02-20] MEDS ORDERED: LOPERAMIDE HCL 2 MG CAPSULE PO PRN (20:49)
[2025-02-20] MEDS ORDERED: BENZONATATE 200 MG CAPSULE PO PRN (20:49)
[2025-02-20] MEDS ORDERED: NALOXONE (NARCAN) HCL 4 MG/0.1 ML SPRAY NS PRN (20:49)
[2025-02-20] MEDS ORDERED: IBUPROFEN 400 MG TABLET (FP) PO PRN (20:49)
[2025-02-20] MEDS ORDERED: IBUPROFEN 600 MG TABLET (FP) PO PRN (20:49)
[2025-02-20] MEDS ORDERED: ONDANSETRON *ODT* 4 MG TABLET SL PRN (20:49)
[2025-02-20] MEDS ORDERED: BENZOCAINE/MENTHOL (CHLORASEPTIC ) LOZENGE MM PRN (20:49)
[2025-02-20] MEDS ORDERED: DICYCLOMINE HCL 10 MG CAPSULE PO PRN (20:49)
[2025-02-20] MEDS ORDERED: POLYETHYLENE GLYCOL (HEALTHYLAX) 3350 17 GM PACKET PO PRN (20:49)
[2025-02-20] MEDS ORDERED: guaiFENesin 600 MG TABLET.ER (FP) PO PRN (20:49)
[2025-02-20] MEDS ORDERED: MAGNESIUM HYDROX 2400MG/30ML ORAL SUSPENSION 30 ML CUP PO PRN (20:49)
[2025-02-20] MEDS ORDERED: MELATONIN 5 MG TABLETS ONE (22:08)
[2025-02-20] MEDS: levETIRAcetam 500 MG TABLET (FP) PO SCH (22:15)
[2025-02-20] MEDS: MELATONIN 5 MG TABLETS PO SCH (22:15)
[2025-02-20] MEDS: THIAMINE 100 MG TABLET PO SCH (22:15)
[2025-02-21] MEDS: PRENATAL VITAMINS W/ FOLIC ACID TABLET (FP) PO SCH (09:41)
[2025-02-21] MEDS: NICOTINE 14 MG/24 HOURS TOPICAL PATCH TD SCH (09:41)
[2025-02-21 09:59] LABS: MCHC 31.5 g/dl (32.3-36.5); MEAN CELL VOLUME 91.5 fl (79.0-92.2); MEAN PLT VOLUME 9.9 fl (9.4-12.4); RDW 13.9 % (12.0-15.6)
[2025-02-21 10:16] LABS: GLUCOSE,RANDOM 89 mg/dL (74-106)
[2025-02-21 10:17] LABS: TOT PROT 6.0 g/dl (6.4-8.2)
[2025-02-21 10:18] LABS: CO2 26 mmol/L (21-32)
[2025-02-21 10:19] LABS: ALK PHOS 133 U/L (40-150)
[2025-02-21 10:22] LABS: CREATININE 0.89 mg/dL (0.55-1.3); SGOT/AST 167 U/L (5-34); SGPT/ALT 93 U/L (0-55)
[2025-02-21] MEDS: GABAPENTIN 300 MG CAPSULE PO ONE (11:50)
[2025-02-21 17:51] LABS: HIV INTERPRETATION NEGATIVE (NEGATIVE)
[2025-02-21] MEDS: SUVOREXANT 10 MG TABLET PO PRN (22:12)
[2025-02-21] MEDS: GABAPENTIN 300 MG CAPSULE PO SCH (22:13)
[2025-02-23] MEDS: METHOCARBAMOL 500 MG TABLET PO PRN (17:12)
[2025-02-23] MEDS: hydrOXYzine PAMOATE 25 MG CAPSULE (FP) PO PRN (20:27)
[2025-02-25 09:50] VITALS: BP 123/74; PULSE 82; RESP 18; TEMP 98.9
== END 2025-02-25 12:31 | disposition other institution (70) | DRG 773 ==
LOC: YASAS 19:51 → Y3N 21:37
PROVIDERS: ADMIT Neuromusculoskeletal Medicine & OMM; ATTEND Allergy & Immunology
PROC: HZ2ZZZZ Detoxification Services for Substance Abuse Treatment (ICD-10-PCS; principal; 2025-02-20)
DX: F10.230 Alcohol dependence with withdrawal, uncomplicated (principal); F13.230 Sedative, hypnotic or anxiolytic dependence with withdrawal, uncomplicated; F11.20 Opioid dependence, uncomplicated; F14.20 Cocaine dependence, uncomplicated; F12.20 Cannabis dependence, uncomplicated; F17.210 Nicotine dependence, cigarettes, uncomplicated; F19.24 Other psychoactive substance dependence with psychoactive substance-induced mood disorder; G62.9 Polyneuropathy, unspecified; G40.909 Epilepsy, unspecified, not intractable, without status epilepticus; Z87.19 Personal history of other diseases of the digestive system
CPT/HCPCS: 36415; 80053; 80307; 85027; 86780; 87389; 93005; 93010